=== PATIENT | female | born 1965 | race Caucasian/White ===

== ENCOUNTER 2023-01-08 09:35 | Inpatient (IN) ==
--- NOTE | 2023-01-08 09:57 | Emergency Department Note ---
History of Present Illness General Chief complaint: Shortness of Breath/Dyspnea Stated complaint: SOB Time Seen by Provider: 01/08/23 09:37 History of Present Illness 57-year-old female presents emergency department with a 2-week history of cough cold congestion, green sputum and shortness of breath. Patient does not wear oxygen at home. Patient called EMS today for increased shortness of breath and cough. Patient denies hemoptysis. Patient is a smoker. Patient denies any history of pneumonia. There are no other mitigating or alleviating factors Home Medications Medication Instructions Recorded Confirmed Type albuterol sulfate 90 mcg/actuation 2 inh inhalation Q6H PRN Shortness 01/08/23 01/08/23 History aerosol inhaler Of Breath Or Wheezing buprenorphine HCl 8 mg sublingual 8 mg sublingual BID 01/08/23 01/08/23 History tablet clonazepam 1 mg tablet 1 mg PO BID 01/08/23 01/08/23 History escitalopram oxalate 20 mg tablet 20 mg PO DAILY 01/08/23 01/08/23 History fluticasone furoate 100 1 inh inhalation DAILY 01/08/23 01/08/23 History mcg-vilanterol 25 mcg/dose inhalation powder (Breo Ellipta) gabapentin 600 mg tablet 600 mg PO QID 01/08/23 01/08/23 History mirtazapine 30 mg tablet 30 mg PO HS 01/08/23 01/08/23 History Allergies Allergy/AdvReac Type Severity Reaction Status Date / Time No Known Allergies Allergy Mild Unverified 12/15/14 06:06 Past Med/Surg History Medical History Anxiety Chronic pain Tobacco use Surgical History (Updated 01/08/23 @ 13:10 by Eliz Owens PA-C) History of ankle surgery History of splenectomy Family History (Updated 01/08/23 @ 13:10 by Eliz Owens PA-C) Mother Hypertension Father Leukemia Social History (Updated 01/08/23 @ 13:11 by Eliz Owens PA-C) Smoking Status: Current every day smoker Tobacco Type: Cigarettes Cigarettes Per Day: 1 pack per day x >30 years; Hx Alcohol Use: No Hx Substance Use: Yes Prescribed Medications Comment: buprenorphine Preferred Language: German Feels Safe at Home: Yes Immunizations: Past medical history of COPD, social history positive smoker Review of Systems A total of 10 systems reviewed and were otherwise negative Respiratory: + cough Cardiovascular: + dyspnea Physical Exam Vital Signs Vital Signs - 24 hr 01/08/23 09:48 01/08/23 09:35 01/08/23 09:35 Temperature 36.5 C Temperature Source Oral Pulse Rate 106 H 97 H Pulse Rate from SpO2 Sensor Pulse Rhythm Regular Respiratory Rate 23 Respiratory Effort / Characteristics Non-Labored Respiratory Depth Normal Respiratory Pattern Regular Blood Pressure 103/82 Blood Pressure Mean 89 Pulse Oximetry 83 L 83 L Oxygen Delivery Method Room Air Nasal Cannula Oxygen Flow Rate 0 Sepsis Recent Fever Within 48 Hours No Sepsis New/Unexplained Change in Mental Status N/A Sepsis Action Taken by Nursing No Action Required Oxygen Flow Rate - Titration 4 Pulse Oximetry Post Tiitration 96 01/08/23 09:45 01/08/23 09:47 01/08/23 10:00 Temperature Temperature Source Pulse Rate 98 H 103 H 96 H Pulse Rate from SpO2 Sensor 103 H 95 H Pulse Rhythm Regular Respiratory Rate 21 19 24 Respiratory Effort / Characteristics Respiratory Depth Respiratory Pattern Blood Pressure 103/82 101/69 Blood Pressure Mean 89 79 Pulse Oximetry 94 82 L 96 Oxygen Delivery Method Nasal Cannula Room Air Nasal Cannula Oxygen Flow Rate 4 4 Sepsis Recent Fever Within 48 Hours Sepsis New/Unexplained Change in Mental Status Sepsis Action Taken by Nursing Oxygen Flow Rate - Titration Pulse Oximetry Post Tiitration 01/08/23 10:30 01/08/23 11:00 01/08/23 11:30 Temperature Temperature Source Pulse Rate 92 H 93 H 94 H Pulse Rate from SpO2 Sensor 90 92 H 94 H Pulse Rhythm Respiratory Rate 21 21 22 Respiratory Effort / Characteristics Respiratory Depth Respiratory Pattern Blood Pressure 96/67 L 101/66 101/65 Blood Pressure Mean 76 77 77 Pulse Oximetry 93 96 95 Oxygen Delivery Method Oxygen Flow Rate Sepsis Recent Fever Within 48 Hours Sepsis New/Unexplained Change in Mental Status Sepsis Action Taken by Nursing Oxygen Flow Rate - Titration Pulse Oximetry Post Tiitration 01/08/23 12:00 01/08/23 13:00 Temperature Temperature Source Pulse Rate 95 H 97 H Pulse Rate from SpO2 Sensor 95 H 97 H Pulse Rhythm Respiratory Rate 24 22 Respiratory Effort / Characteristics Respiratory Depth Respiratory Pattern Blood Pressure 105/74 106/69 Blood Pressure Mean 84 81 Pulse Oximetry 95 92 Oxygen Delivery Method Oxygen Flow Rate Sepsis Recent Fever Within 48 Hours Sepsis New/Unexplained Change in Mental Status Sepsis Action Taken by Nursing Oxygen Flow Rate - Titration Pulse Oximetry Post Tiitration GENERAL: Patient is awake alert in no acute distress patient is resting comfortably and showing no signs of anxiety EYES: The conjunctivae are clear. The pupils are round and reactive. EARS, NOSE, MOUTH AND THROAT: The nose is without any evidence of any deformity. Mucous membranes are moist. Tongue is midline. NECK: The neck is nontender and supple. RESPIRATORY: Increased work of breathing, rhonchi bilaterally CARDIOVASCULAR: Regular rate and rhythm noted there no murmurs rubs or gallops normal S1 normal S2. GASTROINTESTINAL: The abdomen is soft. Abdomen is nontender. BACK: No midline tenderness or or step-off noted range of motion in flexion extension as well as rotation no signs of muscle spasm noted MUSCULOSKELETAL/EXTREMITIES: There is no evidence of gross deformity full range of motion is noted in the hips and shoulders. Calves are nontender bilaterally, no swelling SKIN: There is no obvious evidence of any rash. There are no petechiae, pallor or cyanosis noted. NEUROLOGIC: Patient is awake alert and oriented x3 strength is symmetric vásquez llar reflexes are 2+ bilaterally Course Reevaluation(s) Reevaluation #1: Patient is resting in no distress. Patient started on aspirin, heparin, Lasix. Patient has no current chest pain Time: 11:44 Consultations Consultation #1: [facility], CHF Time: 11:45 Administered Medications Heparin Sodium/Dextrose (Heparin Sodium/Dextrose) 25,000 units in 500 mls @ 23 mls/hr IV .[id number] [facility]; Protocol Stop: 02/07/23 11:14 Last Admin: 01/08/23 11:55 Dose: 1,150 units/hr, 23 mls/hr Documented By: RACHEL Co-signed By: Discontinued Medications Aspirin (Aspirin Chew 324 Mg) 324 mg PO NOW STA Stop: 01/08/23 10:52 Last Admin: 01/08/23 11:48 Dose: 324 mg Documented By: RACHEL Buprenorphine HCl (Buprenorphine Hcl 8 Mg Subl) 8 mg SL ONE ONE Stop: 01/08/23 12:58 Last Admin: 01/08/23 13:22 Dose: 8 mg Documented By: RACHEL Clonazepam (Clonazepam 1 Mg Tab) 1 mg PO NOW STA Stop: 01/08/23 12:50 Last Admin: 01/08/23 13:22 Dose: 1 mg Documented By: RACHEL Furosemide (Furosemide 40 Mg/4 Ml Vial) 40 mg IV ONE ONE Stop: 01/08/23 10:52 Last Admin: 01/08/23 11:50 Dose: 40 mg Documented By: RACHEL Heparin Sodium (Porcine) (Heparin Sod (Porcine) 1000 Unit/Ml) 1 units IV NOW ONE Stop: 01/08/23 11:10 Last Admin: 01/08/23 11:55 Dose: Not Given Documented By: RACHEL Heparin Sodium (Porcine) (Heparin Sod (Porcine) 1000 Unit/Ml) 5,000 units IV NOW ONE Stop: 01/08/23 11:46 Last Admin: 01/08/23 11:54 Dose: 5,000 units Documented By: RACHEL Co-signed By: ABENA Heparin Sodium/Dextrose (Heparin Iv Adult Wt-Based Standard With Bolus Protocol) 1 each IV NOW STA; Protocol Stop: 01/08/23 10:55 Last Admin: 01/08/23 11:55 Dose: Not Given Documented By: RACHEL Piperacillin Sod/Tazobactam Sod (Zosyn) 4.5 gm in 120 mls @ 240 mls/hr IV NOW ONE Stop: 01/08/23 13:24 Last Admin: 01/08/23 13:22 Dose: 240 mls/hr Documented By: RACHEL Methylprednisolone (Methylprednisolone 125 Mg/2 Ml Vial) 125 mg IV NOW STA Stop: 01/08/23 10:53 Last Admin: 01/08/23 11:50 Dose: 125 mg Documented By: RACHEL Critical Care Time Critical Care Time: Yes Total Critical Care Time: 40 I have personally spent greater than 40 minutes of critical care time in the direct management of this patient. This includes bedside care, interpretation of diagnostic studies, and testing, discussion with consultants, patient, and family members, and other required patient management activities. These minutes are in excess of all separately billable procedures. Medical Decision Making Medical Records Attestation: I reviewed the patient's medical records. Home Medications Current Medication List: was personally reviewed by me Laboratory Data Attestation: I reviewed the patient's lab results. Lab results interpreted by me CBC patient has leukocytosis, troponin is elevated, BNP is elevated consistent with ACS and CHF 01/08/23 09:57 Lab Results 01/08/23 01/08/23 01/08/23 Range/Units 09:57 09:57 09:57 WBC 20.25 H (4.8-10.8) K/ul RBC 4.49 (4.20-5.40) M/uL Hgb 14.6 (12.0-16.0) g/dl Hct 43.3 (37.0-47.0) % MCV 96.4 (80.0-100.0) fL MCH 32.5 (25.0-34.0) pg MCHC 33.7 (32.0-36.0) g/dL RDW Std Deviation 52.9 H (36.4-46.3) fL RDW Coeff of Jaime 15.0 H (11.5-14.5) % Plt Count 336 (130-400) K/uL MPV 9.3 L (9.4-12.4) fL Immature Gran % (Auto) 0.5 % Neut % (Auto) 68.9 % Lymph % (Auto) 24.1 % Sully % (Auto) 5.9 % Eos % (Auto) 0.1 % Baso % (Auto) 0.5 % Neut # (Auto) 13.94 H (1.40-6.50) K/uL Lymph # (Auto) 4.89 H (1.20-3.40) K/uL Sully # (Auto) 1.20 H (0.11-0.59) K/uL Eos # (Auto) 0.02 (0.00-0.50) K/uL Baso # (Auto) 0.10 (0.00-0.20) K/uL Immature Gran # (Auto) 0.10 (0.01-0.20) K/uL PT 12.0 (9.0-12.0) Seconds INR 1.1 (0.9-1.1) APTT (21.0-31.0) Seconds PTT Ratio D-Dimer (0-500) ug/L FEU Sodium 140 (136-145) mmol/L Potassium 3.6 (3.5-5.1) mmol/L Chloride 102 (98-107) mmol/L Carbon Dioxide 32 (21-32) mmol/L Anion Gap 6 (3-11) BUN 13 (6-23) mg/dl Creatinine 0.49 L (0.6-1.2) mg/dl Est Cr Clr Drug Dosing 126.2 ml/min Est GFR ( Amer) 127.1 ml/min Est GFR (Non-Af Amer) 109.7 ml/min BUN/Creatinine Ratio 26.5 H (10-20) Glucose 140 H (70-99(Fasting)) mg/dl Calcium 9.1 (8.6-10.3) mg/dl Magnesium 1.9 (1.7-2.4) mg/dl Total Bilirubin 0.4 (0.2-1.0) mg/dl AST 19 (13-39) U/L ALT 16 (7-52) U/L Alkaline Phosphatase 62 (34-104) U/L Troponin I High Sens 500.8 H* (0-14) pg/ml B-Natriuretic Peptide (0-100) pg/ml Total Protein 7.7 (6.0-8.3) gm/dl Albumin 3.8 (3.4-5.0) gm/dl Globulin 3.9 (2.5-4.0) gm/dl Albumin/Globulin Ratio 1.0 (0.9-2) SARS-CoV-2, RNA, NAAT (NEGATIVE) 01/08/23 01/08/23 01/08/23 Range/Units 09:57 09:57 09:57 WBC (4.8-10.8) K/ul RBC (4.20-5.40) M/uL Hgb (12.0-16.0) g/dl Hct (37.0-47.0) % MCV (80.0-100.0) fL MCH (25.0-34.0) pg MCHC (32.0-36.0) g/dL RDW Std Deviation (36.4-46.3) fL RDW Coeff of Jaime (11.5-14.5) % Plt Count (130-400) K/uL MPV (9.4-12.4) fL Immature Gran % (Auto) % Neut % (Auto) % Lymph % (Auto) % Sully % (Auto) % Eos % (Auto) % Baso % (Auto) % Neut # (Auto) (1.40-6.50) K/uL Lymph # (Auto) (1.20-3.40) K/uL Sully # (Auto) (0.11-0.59) K/uL Eos # (Auto) (0.00-0.50) K/uL Baso # (Auto) (0.00-0.20) K/uL Immature Gran # (Auto) (0.01-0.20) K/uL PT (9.0-12.0) Seconds INR (0.9-1.1) APTT 29.7 (21.0-31.0) Seconds PTT Ratio 1.1 D-Dimer 460 (0-500) ug/L FEU Sodium (136-145) mmol/L Potassium (3.5-5.1) mmol/L Chloride (98-107) mmol/L Carbon Dioxide (21-32) mmol/L Anion Gap (3-11) BUN (6-23) mg/dl Creatinine (0.6-1.2) mg/dl Est Cr Clr Drug Dosing ml/min Est GFR ( Amer) ml/min Est GFR (Non-Af Amer) ml/min BUN/Creatinine Ratio (10-20) Glucose (70-99(Fasting)) mg/dl Calcium (8.6-10.3) mg/dl Magnesium (1.7-2.4) mg/dl Total Bilirubin (0.2-1.0) mg/dl AST (13-39) U/L ALT (7-52) U/L Alkaline Phosphatase (34-104) U/L Troponin I High Sens (0-14) pg/ml B-Natriuretic Peptide 435 H (0-100) pg/ml Total Protein (6.0-8.3) gm/dl Albumin (3.4-5.0) gm/dl Globulin (2.5-4.0) gm/dl Albumin/Globulin Ratio (0.9-2) SARS-CoV-2, RNA, NAAT (NEGATIVE) 01/08/23 01/08/23 Range/Units 10:15 12:21 WBC (4.8-10.8) K/ul RBC (4.20-5.40) M/uL Hgb (12.0-16.0) g/dl Hct (37.0-47.0) % MCV (80.0-100.0) fL MCH (25.0-34.0) pg MCHC (32.0-36.0) g/dL RDW Std Deviation (36.4-46.3) fL RDW Coeff of Jaime (11.5-14.5) % Plt Count (130-400) K/uL MPV (9.4-12.4) fL Immature Gran % (Auto) % Neut % (Auto) % Lymph % (Auto) % Sully % (Auto) % Eos % (Auto) % Baso % (Auto) % Neut # (Auto) (1.40-6.50) K/uL Lymph # (Auto) (1.20-3.40) K/uL Sully # (Auto) (0.11-0.59) K/uL Eos # (Auto) (0.00-0.50) K/uL Baso # (Auto) (0.00-0.20) K/uL Immature Gran # (Auto) (0.01-0.20) K/uL PT (9.0-12.0) Seconds INR (0.9-1.1) APTT (21.0-31.0) Seconds PTT Ratio D-Dimer (0-500) ug/L FEU Sodium (136-145) mmol/L Potassium (3.5-5.1) mmol/L Chloride (98-107) mmol/L Carbon Dioxide (21-32) mmol/L Anion Gap (3-11) BUN (6-23) mg/dl Creatinine (0.6-1.2) mg/dl Est Cr Clr Drug Dosing ml/min Est GFR ( Amer) ml/min Est GFR (Non-Af Amer) ml/min BUN/Creatinine Ratio (10-20) Glucose (70-99(Fasting)) mg/dl Calcium (8.6-10.3) mg/dl Magnesium (1.7-2.4) mg/dl Total Bilirubin (0.2-1.0) mg/dl AST (13-39) U/L ALT (7-52) U/L Alkaline Phosphatase (34-104) U/L Troponin I High Sens 1613.1 H* D (0-14) pg/ml B-Natriuretic Peptide (0-100) pg/ml Total Protein (6.0-8.3) gm/dl Albumin (3.4-5.0) gm/dl Globulin (2.5-4.0) gm/dl Albumin/Globulin Ratio (0.9-2) SARS-CoV-2, RNA, NAAT NEGATIVE (NEGATIVE) Imaging Data Attestation: I personally reviewed and interpreted this imaging study as foll ows: My Impression: Chest x-ray interpreted by me negative for infiltrate Radiologist's Impression: Chest X-Ray 01/08/23 09:37 XR chest 1V portable CLINICAL HISTORY: Dyspnea TECHNIQUE: Single frontal radiograph of the chest was obtained. Comparison: Comparison is made to chest radiograph 12/15/2014 FINDINGS: No lines and tubes are seen. The cardiomediastinal silhouette is normal. Prominence and cephalization of the vasculature is seen. No evidence of pleural effusion or pneumothorax. IMPRESSION: Possible mild pulmonary vascular congestion. ACT 112: Negative or not required by law. Electronically signed by: Keven Peck M.D. 01/08/2023 10:31 AM ECG Data Attestation: I personally reviewed and interpreted this ECG as follows: Additional Comments: EKG interpreted by me sinus tachycardia rate of 101, incomplete right bundle branch block, no obvious ST segment elevation or depression normal axis Telemetry was ordered by me, interpreted as sinus tachycardia rate of 101 MDM Narrative Medical decision making differential diagnosis includes COPD exacerbation, COVID, pneumonia, bronchitis, upper respiratory tract infection, cardiac dysrhythmia EMS medical report was reviewed by me Family provided me bedside history Plan is to check labs, EKG, chest x-ray Patient's heart score is a 4 Patient has an elevated troponin, elevated BNP, will be treated for COPD, CHF, ACS Patient was started on aspirin, heparin, Lasix [facility] Impression & Plan ACS (acute coronary syndrome), CHF (congestive heart failure), Leukocytosis, COPD (chronic obstructive pulmonary disease) Discharge Plan Visit Data Chief Complaint: Shortness of Breath/Dyspnea Stated Complaint: SOB ED Provider: Fredrick Latif Discharge Problem: ACS (acute coronary syndrome), CHF (congestive heart failure), Leukocytosis, COPD (chronic obstructive pulmonary disease) Patient Disposition: Admitted As Inpatient Forms Stand Alone Forms: My [facility] pickrset Prescriptions Prescriptions: No Action gabapentin 600 mg tablet 600 mg PO QID clonazepam 1 mg tablet 1 mg PO BID mirtazapine 30 mg tablet 30 mg PO HS albuterol sulfate 90 mcg/actuation HFA aerosol inhaler 2 inh INHALATION Q6H PRN (Reason: Shortness Of Breath Or Wheezing) escitalopram oxalate 20 mg tablet 20 mg PO DAILY buprenorphine HCl 8 mg tablet, sublingual 8 mg SUBLINGUAL BID fluticasone furoate-vilanterol [Breo Ellipta] 100-25 mcg/dose blister with device 1 inh INHALATION DAILY Referrals Referrals: Police,[place] [Non-Staff] -
[2023-01-08 10:19] LABS: Basophils % (auto) 0.5 %; Eosinophils # (auto) 0.02 K/uL (0.00-0.50); Eosinophils % (auto) 0.1 %; Hematocrit (blood only) 43.3 % (37.0-47.0); Hemoglobin 14.6 g/dl (12.0-16.0); Immature Granulocytes % (auto) 0.5 %; Lymphocytes # (auto) 4.89 K/uL (1.20-3.40); Lymphocytes % (auto) 24.1 %; Mean Corpuscular Hemoglobin 32.5 pg (25.0-34.0); Mean Corpuscular Hgb Conc 33.7 g/dL (32.0-36.0); Mean Corpuscular Volume 96.4 fL (80.0-100.0); Mean Platelet Volume 9.3 fL (9.4-12.4); Monocytes % (auto) 5.9 %; Neutrophils # (auto) 13.94 K/uL (1.40-6.50); Neutrophils % (auto) 68.9 %; Platelet Count 336 K/uL (130-400); RDW Standard Deviation 52.9 fL (36.4-46.3); Red Blood Count 4.49 M/uL (4.20-5.40); White Blood Count 20.25 K/ul (4.8-10.8)
--- NOTE | 2023-01-08 10:33 | XRay Report ---
XR chest 1V portable CLINICAL HISTORY: Dyspnea TECHNIQUE: Single frontal radiograph of the chest was obtained. Comparison: Comparison is made to chest radiograph 12/15/2014 FINDINGS: No lines and tubes are seen. The cardiomediastinal silhouette is normal. Prominence and cephalization of the vasculature is seen. No evidence of pleural effusion or pneumothorax. IMPRESSION: Possible mild pulmonary vascular congestion. ACT 112: Negative or not required by law. Electronically signed by: Keven Peck M.D. 01/08/2023 10:31 AM
[2023-01-08 10:45] LABS: INR 1.1 (0.9-1.1)
[2023-01-08] MEDS ORDERED: FUROSEMIDE 40 MG/4 ML VIAL IV ONE (10:51)
[2023-01-08] MEDS ORDERED: ASPIRIN CHEW 324 MG PO STA (10:51)
[2023-01-08 10:52] LABS: Troponin I High Sensitivity 500.8 pg/ml (0-14)
[2023-01-08] MEDS ORDERED: methylPREDNISolone 125 MG/2 ML VIAL IV STA (10:52)
[2023-01-08 10:54] LABS: Albumin Level 3.8 gm/dl (3.4-5.0); Anion Gap 6 (3-11); Bilirubin,Total 0.4 mg/dl (0.2-1.0); Calcium 9.1 mg/dl (8.6-10.3); Carbon Dioxide 32 mmol/L (21-32); Chloride 102 mmol/L (98-107); Magnesium 1.9 mg/dl (1.7-2.4); Potassium 3.6 mmol/L (3.5-5.1); Sodium 140 mmol/L (136-145)
[2023-01-08] MEDS ORDERED: Heparin IV Adult Wt-Based Standard WITH Bolus Protocol IV STA (10:54)
[2023-01-08 11:00] LABS: Alanine Aminotransferase 16 U/L (7-52); Alkaline Phosphatase 62 U/L (34-104); Aspartate Aminotransferase 19 U/L (13-39); BUN Creatinine Ratio 26.5 (10-20); Blood Urea Nitrogen 13 mg/dl (6-23); Creatinine Clr Calc Pharmacy 126.2 ml/min; Est GFR (African American) 127.1 ml/min; Est GFR (Non-African American) 109.7 ml/min; Globulin 3.9 gm/dl (2.5-4.0); Glucose 140 mg/dl (70-99(Fasting)); Total Protein 7.7 gm/dl (6.0-8.3)
[2023-01-08] MEDS ORDERED: HEPARIN SOD (PORCINE) 1000 UNIT/ML IV ONE ×2 (11:09→11:45)
[2023-01-08 11:44] LABS: Partial Thromboplastin Ratio 1.1; Partial Thromboplastin Time 29.7 Seconds (21.0-31.0)
--- NOTE | 2023-01-08 11:46 | History & Physical Report ---
Date of Service January 08, 2023 Assessment & Plan (1) Acute respiratory failure with hypoxia: (2) History of asplenia: Plan: Patient is a 57-year-old female with PMH GERD, anxiety, tobacco use, chronic pain, history of splenectomy presented to ER with complaint of worsening exertional shortness of breath x 3 weeks. Green productive cough x1 week. Severely increased shortness of breath today. DDx bronchitis, pneumonia. Suspect underlying undiagnosed COPD and likely COPD exacerbation In ER patient afebrile, tachycardic, BP stable, 83% on room air up to 94% on 4 L nasal cannula Was given DuoNeb in route by EMS In ER given 125 mg Solu-Medrol IV WBC: 20 SARS Cov 2 RNA: Negative Procalcitonin pending Biofire pending D-dimer WNL Blood cultures pending CXR: Possible mild pulmonary vascular congestion. Per radiology read. Per my interpretation no acute infiltrate noted Supplemental oxygen, goal 89-92% oxygen saturations Xopenex/Atrovent scheduled nebs Solu-Medrol 40 mg every 8 hours Zosyn, doxycycline Sputum culture Obtain Legionella CT chest pending Echo pending Continue home Breo inhaler CBC, BMP in a.m. (3) Elevated troponin: Plan: NSTEMI vs ACS vs demand ischemia Initial high-sensitivity troponin: 500. Initial EKG sinus tachycardia, rate 101, no significant ST elevations per my interpretation. Prior EKG from 12/15/2014 reviewed: Sinus bradycardia, rate 58, T wave inversions noted septal and anterior leads per my interpretation. Obtain EKG now to reevaluate Repeat HS troponin pending In ER given 324mg aspirin, IV heparin bolus and drip started Echo pending Trend troponin Continue heparin IV Lipid panel in am Start daily aspirin Consider starting statin Cardiology consult. Discussed with Dr Catalan and will have echo completed now. Repeat EKG in am Possible heart failure likely secondary to above BNP 435 CXR Possible mild pulmonary vascular congestion per radiologist In ER given Lasix 40 mg IV Monitor I's and O's, daily weight Echo pending Lasix (4) Anxiety: Plan: Continue escitalopram, clonazepam (5) Chronic pain: Plan: Continue buprenorphine, gabapentin (6) Tobacco use: Plan: 1 pack/day x > 30 years Smoking cessation advised Denies nicotine patch at this time DVT Prophylaxis On IV heparin currently Full Code as per discussion with pt Follows with Jillian Persaud PA-C in [place] for routine care Pt was seen and care coordinated with Dr Beckwith. See addendum History of Present Illness Chief Complaint: SOB, cough Primary Care Provider: Jillian Persaud PA-C Patient is a 57-year-old female with PMH GERD, anxiety, tobacco use, chronic pain, history of splenectomy presented to ER with complaint of shortness of breath. History obtained from patient and patient's daughter. Patient reports exertional SOB for greater than 1 year. Followed with PCP who initially placed patient on albuterol inhaler as needed. Patient states was using frequently and recently was started on Breo inhaler daily. Has not had any formal PFTs or further work-up for per patient. Patient states the past 3 weeks she has had increased shortness of breath with exertion. She states she lives in a 1 story trailer and she has been short of breath with minimal ambulation throughout her house. States for the past week has had cough productive of green-colored sputum. Reports has been coughing a lot and abdomen and back are aching after coughing. States past couple days increased fatigue and dizziness with standing. Patient reports severely increased shortness of breath this morning. Patient states was also diaphoretic this morning. Has not been taking her temperature. She called EMS. As reported EMS noted patient to be hypoxic gave patient DuoNeb. Patient states feels less short of breath after DuoNeb and while on oxygen. Denies chest pain. Denies ill contacts, recent travel Denies N/V/D, LOPEZ, syncope, vision changes, neck pain, CP, chest tightness, orthopnea, palpitations, hemoptysis, sore throat, choking, otalgia, rhinorrhea, paresthesias, extremity weakness, extremity edema, rashes, urinary symptoms. Allergies Allergy/AdvReac Type Severity Reaction Status Date / Time No Known Allergies Allergy Mild Unverified 12/15/14 06:06 Home Medications Medication Instructions Recorded Confirmed Type albuterol sulfate 90 mcg/actuation 2 inh inhalation Q6H PRN Shortness 01/08/23 01/08/23 History aerosol inhaler Of Breath Or Wheezing buprenorphine HCl 8 mg sublingual 8 mg sublingual BID 01/08/23 01/08/23 History tablet clonazepam 1 mg tablet 1 mg PO BID 01/08/23 01/08/23 History escitalopram oxalate 20 mg tablet 20 mg PO DAILY 01/08/23 01/08/23 History fluticasone furoate 100 1 inh inhalation DAILY 01/08/23 01/08/23 History mcg-vilanterol 25 mcg/dose inhalation powder (Breo Ellipta) gabapentin 600 mg tablet 600 mg PO QID 01/08/23 01/08/23 History mirtazapine 30 mg tablet 30 mg PO HS 01/08/23 01/08/23 History Past Med/Surg History Medical History Anxiety Chronic pain Tobacco use Surgical History History of ankle surgery History of splenectomy Family History Mother Hypertension Father Leukemia Social History Smoking Status: Current every day smoker Tobacco Type: Cigarettes Cigarettes Per Day: 1 pack per day x >30 years; Hx Alcohol Use: No Hx Substance Use: Yes Prescribed Medications Comment: buprenorphine Preferred Language: Bur[place]ian Feels Safe at Home: Yes Review of Systems Review of Systems: All systems reviewed & are unremarkable except as noted in HPI & below Physical Exam Physical Exam: General: no acute distress on current 3 liters oxygen and at rest, WDWN female appears older than stated age Head: normocephalic, atraumatic Eyes: conjunctiva non-injected, anicteric ENT: normal inspection external ears, nose, mucous membranes moist Neck: supple, trachea midline Lungs: no respiratory distress at rest and on 3L oxygen. Sats 93-94%, +rhonchi throughout that decreases after coughing, + scattered wheezing throughout CV: regular rhythm, tachycardia,rate 100, no murmur noted, no pretibial edema Abd: normal BS, soft, non-tender Ext: no cyanosis, no erythema, no calf tenderness Neuro: A&O x 3, no focal deficits noted, mildly anxious affect Skin: warm, dry Results & Data Results & Data Vital Signs (Past 12 Hours) Vital Signs Temp Pulse Resp BP Pulse Ox O2 Del Method O2 Flow Rate 01/08/23 10:00 96 H 24 101/69 96 Nasal Cannula 4 01/08/23 09:47 103 H 19 103/82 82 L Room Air 01/08/23 09:45 98 H 21 94 Nasal Cannula 4 01/08/23 09:35 83 L Nasal Cannula 0 01/08/23 09:35 36.5 C 97 H 23 103/82 83 L Room Air 01/08/23 09:48 106 H Laboratory Results Short CBC 01/08/23 Range/Units 09:57 WBC 20.25 H (4.8-10.8) K/ul Hgb 14.6 (12.0-16.0) g/dl Hct 43.3 (37.0-47.0) % Plt Count 336 (130-400) K/uL BMP 01/08/23 09:57 Sodium 140 Potassium 3.6 Chloride 102 Carbon Dioxide 32 BUN 13 Creatinine 0.49 L Glucose 140 H Calcium 9.1 Liver Function 01/08/23 Range/Units 09:57 Total Bilirubin 0.4 (0.2-1.0) mg/dl AST 19 (13-39) U/L ALT 16 (7-52) U/L Alkaline Phosphatase 62 (34-104) U/L Albumin 3.8 (3.4-5.0) gm/dl Diagnostic Findings Chest X-Ray 01/08/23 09:37 XR chest 1V portable CLINICAL HISTORY: Dyspnea TECHNIQUE: Single frontal radiograph of the chest was obtained. Comparison: Comparison is made to chest radiograph 12/15/2014 FINDINGS: No lines and tubes are seen. The cardiomediastinal silhouette is normal. Prominence and cephalization of the vasculature is seen. No evidence of pleural effusion or pneumothorax. IMPRESSION: Possible mild pulmonary vascular congestion. ACT 112: Negative or not required by law. Electronically signed by: Keven Peck M.D. 01/08/2023 10:31 AM Supervising Physician Co-Signing Physician Notes Pt seen and examined by myself, Cathy Beckwith MD on the day of service. Care was coordinated with Eliz Owens PA-C. 57yoF with PMhx significant for chronic pain, anxiety and chronic tobacco use presenting with acute hypoxic respiratory failure. No oxygen requirement at home, requiring 4L on admission. Pt noted recent Hx of chronic cough and colored sputum for the past 2 weeks with increasing SOB. Chest XRAY noted possible pulmonary vascular congestion, WBC elevated. hs-Troponins elevated at 500.8, BNP elevated at 435. On exam, pt with oxymask in place, no acute distress. Breath sounds rhonchus on exam. No noted swelling in lower extremities. Acute hypoxic resp failure- biofire, legionella, procal, CT chest, pulm toilet, continue Lasix at 20mg daily (started in the ED), continue IV solumedrol, empiric Cefepime and doxycycline Elevated trops- ekg with sinus tach and RBBB, echo pending, trend hs-trop, cardiology consult-appreciate recs, continue IV heparin Continue other chronic home meds. Otherwise as above. Cathy Beckwith MD [facility]
[2023-01-08] MEDS: HEPARIN SODIUM/DEXTROSE 25,000 UNITS/500 ML BAG IV SCH (11:55)
[2023-01-08] MEDS ORDERED: clonazePAM 1 MG TAB PO STA (12:49)
[2023-01-08] MEDS ORDERED: DOXYCYCLINE HYCLATE 100 MG in DEXTROSE 5% 100 ML IV STA (12:53)
[2023-01-08] MEDS ORDERED: PIPERACILLIN/TAZOBACTAM 4.5 GM in DEXTROSE 5% 100 ML IV ONE (12:53)
[2023-01-08] MEDS ORDERED: PIPERACILLIN/TAZOBACTAM 4.5 GM/120 ML BAG IV ONE (12:55)
[2023-01-08] MEDS ORDERED: buprenorphine HCL 8 MG SUBL SL ONE (12:57)
[2023-01-08 13:07] LABS: D Dimer 460 ug/L FEU (0-500)
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
[2023-01-08 14:00] LABS: Adenovirus PCR Not Detected (NotDetected); Bordetella parapertussis PCR Not Detected (NotDetected); Bordetella pertussis PCR Not Detected (NotDetected); Chlamydia pneumoniae PCR Not Detected (NotDetected); Coronavirus 229E PCR Not Detected (NotDetected); Coronavirus CoV-2 (COVID19)PCR Not Detected (NotDetected); Coronavirus HKU1 PCR Not Detected (NotDetected); Coronavirus NL63 PCR Not Detected (NotDetected); Coronavirus OC43PCR Not Detected (NotDetected); Human Metapneumovirus PCR Not Detected (NotDetected); Influenza A PCR Not Detected (NotDetected); Influenza B PCR Not Detected (NotDetected); Mycoplasma pneumoniae PCR Not Detected (NotDetected); Parainfluenza Virus 1 PCR Not Detected (NotDetected); Parainfluenza Virus 2 PCR Not Detected (NotDetected); Parainfluenza Virus 3 PCR Not Detected (NotDetected); Parainfluenza Virus 4 PCR Not Detected (NotDetected); Respiratory Syncytial VirusPCR Not Detected (NotDetected); Rhinovirus/Enterovirus PCR Not Detected (NotDetected)
[2023-01-08] MEDS ORDERED: POTASSIUM CHLORIDE 10 MEQ TABCR PO STA (14:42)
[2023-01-08] MEDS ORDERED: MAGNESIUM HYDROXIDE SUSP 30 ML UDC PO PRN (15:29)
[2023-01-08] MEDS ORDERED: ACETAMINOPHEN 325 MG TAB PO PRN (15:29)
[2023-01-08] MEDS ORDERED: POLYETHYLENE (MIRALAX) 17 GM PACK PO PRN (15:29)
[2023-01-08] MEDS ORDERED: XOPENEX/ATROVENT 1.25mg/0.5MG NEB COMBO NEB SCH (15:29)
--- NOTE | 2023-01-08 15:57 | CT Scan Report ---
CT chest diagnostic wo con CLINICAL HISTORY: hypoxia, r/o pna TECHNIQUE: Multidetector row helical CT of the chest was performed. Coronal and sagittal reformations were obtained. Automated dose lowering techniques and/or adjustment according to patient size were u tilized for this exam. CT DOSE: 303.32 mGy.cm Comparison: Comparison is made to chest radiograph 01/08/2023 FINDINGS: Lungs and pleura: Diffuse centrilobular emphysema is seen most prominent in the upper lobes. Multifoc al opacities are seen favoring the lower lungs. Heart and pericardium: Heart size is normal. No pericardial effusion. Vessels: Unremarkable. Mediastinum and george: Numerous enlarged lymph nodes are seen in the mediastinum measuring up to 11 mm . Chest wall and lower neck: Unremarkable. Abdomen: Unremarkable. Bones: Degenerative changes in the thoracic spine. IMPRESSION: 1. Multifocal pneumonia with reactive mediastinal lymphadenopathy. 2. Emphysema. ACT 112: Negative or not required by law. Electronically signed by: Keven Peck M.D. 01/08/2023 3:55 PM
[2023-01-08] MEDS: LEVALBUTEROL 1.25 MG/3 ML NEB NEB SCH ×2 (16:23→19:26)
[2023-01-08] MEDS: IPRATROPIUM BROMIDE NEB SOLN 0.02% 2.5 ML VIAL INH SCH ×2 (16:23→19:26)
[2023-01-08] MEDS ORDERED: POTASSIUM CHLORIDE 10 MEQ TABCR PO ONE (17:01)
[2023-01-08] MEDS: GABAPENTIN 600 MG TAB PO SCH ×2 (17:56→22:22)
[2023-01-08] MEDS: CEFEPIME 2,000 MG in SYRINGE 0 ML IV SCH (17:57)
[2023-01-08] MEDS: ESCITALOPRAM OXALATE 20 MG TAB PO SCH (17:57)
[2023-01-08 19:02] LABS: Partial Thromboplastin Ratio > 4.9
[2023-01-08 19:10] LABS: Partial Thromboplastin Time > 139.0 Seconds (21.0-31.0)
[2023-01-08 20:08] LABS: Appearance Urine Clear (Clear); Bilirubin Urine Negative (Negative); Blood Urine Negative (Negative); Color Urine Yellow; Glucose Urine UA Negative (Negative); Ketones Urine Trace (Negative); Leukocyte Esterase Urine Negative (Negative); Nitrite Urine Negative (Negative); Protein Urine Negative (Negative); Urobilinogen Urine Negative (Negative); pH Urine 5.5 (4.5-7.5)
[2023-01-08 20:47] LABS: Partial Thromboplastin Ratio 2.5
[2023-01-08 21:09] LABS: Partial Thromboplastin Time 69.1 Seconds (21.0-31.0)
[2023-01-08] MEDS: clonazePAM 1 MG TAB PO SCH (22:22)
[2023-01-08] MEDS: buprenorphine HCL 8 MG SUBL SL SCH (22:22)
[2023-01-08] MEDS: MIRTAZAPINE TAB 15 MG TAB PO SCH (22:22)
[2023-01-08] MEDS: DOXYCYCLINE HYCLATE 100 MG CAP PO SCH (22:22)
[2023-01-08] MEDS ORDERED: ALBUT/IPRATROP 3MG/0.5MG NEB 3 ML VIAL NEB STA (22:38)
[2023-01-08] MEDS ORDERED: ALBUT/IPRATROP 3MG/0.5MG NEB 3 ML VIAL ONE (22:45)
[2023-01-08] MEDS ORDERED: methylPREDNISolone 40 MG in SYRINGE 0 ML IV STA (22:58)
[2023-01-08] MEDS ORDERED: ALBUMIN 25% 25 GM/100 ML VIAL IV ONE (23:00)
[2023-01-08 23:01] LABS: Partial Thromboplastin Ratio 1.1; Partial Thromboplastin Time 30.4 Seconds (21.0-31.0)
[2023-01-08 23:06] LABS: Base Excess ABG 9.6 mEq/L (-9-1.8); HCO3 ABG 36 mmol/L (19-24); Oxygen Saturation ABG 99.9 % (90-95); PCO2 ABG 54 mmHg (35-46); PO2 ABG 123 mmHg (80-95); pH ABG 7.43 (7.35-7.45)
[2023-01-08 23:08] LABS: Allen Test Pos (Pos)
[2023-01-08] MEDS: MAGNESIUM SULFATE / D5W 1 GM/100 ML BAG IV SCH (23:10)
[2023-01-09] MEDS: LEVALBUTEROL 1.25 MG/3 ML NEB NEB SCH ×4 (00:51→19:20)
[2023-01-09] MEDS: IPRATROPIUM BROMIDE NEB SOLN 0.02% 2.5 ML VIAL INH SCH ×4 (00:52→19:19)
[2023-01-09] MEDS ORDERED: ALBUMIN 25% 25 GM/100 ML VIAL IV ONE (01:15)
[2023-01-09] MEDS: MAGNESIUM SULFATE / D5W 1 GM/100 ML BAG IV SCH (01:21)
[2023-01-09] MEDS: CEFEPIME 2,000 MG in SYRINGE 0 ML IV SCH ×3 (04:32→20:09)
[2023-01-09 05:30] LABS: Basophils # (auto) 0.02 K/uL (0.00-0.20); Basophils % (auto) 0.1 %; Hematocrit (blood only) 36.2 % (37.0-47.0); Hemoglobin 11.8 g/dl (12.0-16.0); Immature Granulocytes # (auto) 0.06 K/uL (0.01-0.20); Immature Granulocytes % (auto) 0.3 %; Lymphocytes # (auto) 2.69 K/uL (1.20-3.40); Lymphocytes % (auto) 14.8 %; Mean Corpuscular Hemoglobin 31.7 pg (25.0-34.0); Mean Corpuscular Hgb Conc 32.6 g/dL (32.0-36.0); Mean Corpuscular Volume 97.3 fL (80.0-100.0); Mean Platelet Volume 9.4 fL (9.4-12.4); Monocytes # (auto) 0.53 K/uL (0.11-0.59); Monocytes % (auto) 2.9 %; Neutrophils # (auto) 14.89 K/uL (1.40-6.50); Neutrophils % (auto) 81.9 %; Platelet Count 288 K/uL (130-400); RDW Coefficient of Variation 14.7 % (11.5-14.5); Red Blood Count 3.72 M/uL (4.20-5.40); White Blood Count 18.19 K/ul (4.8-10.8)
[2023-01-09 05:35] LABS: BUN Creatinine Ratio 31.1 (10-20); Calcium 9.3 mg/dl (8.6-10.3); Chol HDL Ratio 3.9 (0-5); Creatinine Clr Calc Pharmacy 101.3 ml/min; Est GFR (African American) 118.3 ml/min; Est GFR (Non-African American) 102.1 ml/min; Potassium 3.8 mmol/L (3.5-5.1)
[2023-01-09 05:59] LABS: Partial Thromboplastin Ratio 2.4
[2023-01-09 06:51] LABS: Partial Thromboplastin Time 68.7 Seconds (21.0-31.0)
[2023-01-09 07:20] LABS: Estimated Average Glucose 120 mg/dl; Hemoglobin A1C 5.8 % (4.5-5.6)
[2023-01-09] MEDS ORDERED: methylPREDNISolone 40 MG in SYRINGE 0 ML IV SCH (09:00)
[2023-01-09] MEDS ORDERED: ASPIRIN 81 MG ECTAB PO SCH (09:00)
--- NOTE | 2023-01-09 09:42 | Cardiology Progress Note ---
Date of Service January 09, 2023 Assessment & Plan (1) Acute respiratory failure with hypoxia: (2) Abnormal EKG: (3) Elevated troponin: (4) Tobacco use: (5) Chronic pain: (6) Anxiety: Plan 57 year old female presenting with acute hypoxic respiratory failure secondary to multifocal pneumonia in the setting of underlying emphysema from chronic tobacco abuse. Elevated troponin noted along with an abnormal EKG, resting echocardiography revealing severe LV systolic dysfunction, EF 25 to 30% with severe diffuse LV hypokinesis affecting the mid and apical segments with relative sparing of the basal segments. Overall picture is that of the stress- induced cardiomyopathy though ischemia due to obstructive coronary artery disease is certainly a possibility RECOMMENDATIONS: 1. Repeat EKG 2. Repeat limited TTE this AM to reassess LVEF and wall motion 3. Continue aspirin, IV heparin, and statin. 4. Attempt to add low dose beta-alex therapy (metoprolol succinate 12.5 mg/day) as hypotension and respiratory status permit 5. Pending the above, it may be best to advance her diet and await for her acute pulmonary issues to improve prior to diagnostic cardiac catheterization 6. Find a way to become and remain an ex-smoker 7. Further recommendations pending the above, evaluation by Dr. Catalan, patient's ongoing hospitalization. Admission and Anticipated Discharge Date Admission Date: January 08, 2023 Supervising Physician Co-Signing Physician Notes Supervising Physician Attestation: I have personally performed a history and physical examination on the patient. I agree with the physician paperhanger assistant's findings and plan as documented with the following additions. Subjective: Patient seen and examined. She remains in room A4B at as a telemetry overflow patient in the emergency department. Telemetry reveals sinus rhythm in the 60s. At the time my assessment oxygen saturation normal, 95% on room air. Patient notes feeling markedly improved compared to yesterday. Family at the bedside including her son and daughter. Exam: Cardiovascular: Regular rhythm, no murmurs rubs or gallops, no edema Pulmonary: Coarse breath sounds, diffuse wheezing improved Data: Repeat EKG performed today 01/09/2023 and interpreted independently: Sinus rhythm at 61 bpm with incomplete right bundle branch block, T wave flattening noted in the anterior precordial leads and T wave inversions noted in lateral precordial leads V4 to V6. Compared to the tracing from yesterday, the ventricular rate has decreased by [address] segment elevation is no longer present in the anterior leads. Anterolateral T wave changes now present. A limited echocardiogram was performed at the bedside for reassessment and interpret independently: Ongoing severe diffuse hypokinesis of the mid and apical left ventricular segments noted with relative sparing of the basal segments, LVEF in the range of 25-30%. Compared 2D echocardiogram performed yesterday 01/08/2023 however there is a subtle improvement in the LV systolic function No coronary artery calcification observed on noncontrast CT of the chest. Assessment and Plan: Multifocal pneumonia with respiratory insufficiency Left ventricular systolic function, presentation suggest possible stress-induced cardiomyopathy with left ventricular apical ballooning syndrome, underlying ischemia not excluded -At present I recommend ongoing supportive care. Patient is not volume overloaded on exam. Continue aspirin, unfractioned heparin and atorvastatin along with inhaled bronchodilators, antibiotic therapy, Solu-Medrol. -No indication for emergent cardiac catheterization at present. -Patient tells me that historically her systolic blood pressure is in the 90s to 100s at baseline. With heart rate of 60 and systolic blood pressure 90 mm Hg this am , additional therapies including beta-alex, ACEi, ARB , and neprilysin inhibitor agents contraindicated at present. Case discussed with Dr. Padron for the purpose of coordination of care. Advance diet. Discussed updates with family at the bedside. Goran Catalan, Subjective Patient seen and examined. Chart, medications, and telemetry reviewed. Family/children at bedside. Patient feels and looks significantly better this morning. Breathing, cough, ch est congestion, SPO2, and heart rates have all improved. No chest pain. No palpitations. No orthopnea or PND. Echocardiogram performed on January 08, 2023 revealed severe diffuse hypokinesis of the left ventricle affecting the mid and apical segments with relative sparing of the basal segments, LVEF in the range of 25 -30% (severely diminished) Noncontrast CT chest: Multifocal pneumonia with reactive mediastinal lymphadenopathy as per radiology report, underlying emphysema. No coronary artery calcification noted on limited visualization. High-sensitivity troponin 500.8 -> 1352.1 -> 888.0 pg/mL. LDL cholesterol 70 mg/deciliter EKG requested this AM. Review of Systems Review of Systems: Complete Review of Systems is as stated above, negative, or noncontributory. Physical Exam Physical Exam: General: A&Ox3. NAD. HENT: Normocephalic. Atraumatic. Eyes: PER. Conjunctiva pink, sclera injected. Neck: No carotid bruits. No JVD. Heart: RRR, 60 bpm. No murmur. Lungs: Diminished. Decreased. Diffuse expiratory wheezing. Abdomen: +BS. Soft. Nontender. No masses or organomegaly. Extremities: No clubbing, cyanosis, or edema. Limited neurological examination is without focal deficits. Pulses: radial=2/4, posterior tibial=1/4. Results & Data Vital Signs (Past 12 Hours) Vital Signs Pulse Pulse Resp BP Pulse Ox O2 Del Method O2 Flow Rate 01/09/23 06:58 66 01/09/23 06:44 57 L 18 84 L Room Air 01/09/23 05:15 59 L 20 90/63 L 95 Nasal Cannula 01/09/23 05:00 63 20 87/55 L 94 Nasal Cannula 01/09/23 04:45 58 L 14 84/60 L 95 Nasal Cannula 01/09/23 04:30 60 13 87/56 L 92 Nasal Cannula 01/09/23 04:15 61 12 86/57 L 93 Nasal Cannula 01/09/23 04:00 60 12 81/57 L 95 Nasal Cannula 01/09/23 03:45 59 L 12 86/60 L 95 Nasal Cannula 01/09/23 03:32 67 19 78/50 L 95 Nasal Cannula 01/09/23 03:30 67 18 95 01/09/23 03:15 61 17 85/50 L 98 Nasal Cannula 01/09/23 03:00 62 12 81/59 L 97 01/09/23 02:45 71 13 92/64 L 93 Nasal Cannula 01/09/23 02:30 67 12 83/49 L 94 01/09/23 02:15 68 16 79/52 L 93 Nasal Cannula 01/09/23 02:06 67 12 93 01/09/23 01:45 70 14 87/49 L 92 Nasal Cannula 01/09/23 01:30 69 13 81/49 L 93 Nasal Cannula 01/09/23 01:15 72 12 78/50 L 93 Nasal Cannula 01/09/23 01:00 70 13 85/56 L 99 Nasal Cannula 01/09/23 00:45 68 14 77/54 L 94 Nasal Cannula 5 01/09/23 00:30 70 12 80/53 L 96 Nasal Cannula 5 01/09/23 00:15 71 13 79/52 L 98 Nasal Cannula 5 01/09/23 00:54 70 49 H 95 Nasal Cannula 4 01/08/23 22:56 73 01/08/23 22:42 67 16 108/65 96 Nasal Cannula 5 01/08/23 22:32 73 20 79/52 L 97 Nasal Cannula 5 01/08/23 22:30 72 16 51/30 L 96 01/08/23 22:00 73 28 H 88/62 L 96 Nasal Cannula 5 01/08/23 22:00 88/62 L Laboratory Results Cardiac Enzymes 01/08/23 01/08/23 01/08/23 Range/Units 09:57 09:57 12:21 AST 19 (13-39) U/L Troponin I High Sens 500.8 H* 1613.1 H* D (0-14) pg/ml B-Natriuretic Peptide 435 H (0-100) pg/ml 01/08/23 01/09/23 Range/Units 17:56 00:20 AST (13-39) U/L Troponin I High Sens 1352.1 H* 888.0 H* D (0-14) pg/ml B-Natriuretic Peptide (0-100) pg/ml Coagulation 01/08/23 01/08/23 01/08/23 Range/Units 09:57 09:57 09:57 PT 12.0 (9.0-12.0) Seconds APTT 29.7 (21.0-31.0) Seconds B-Natriuretic Peptide 435 H (0-100) pg/ml 01/08/23 01/08/23 01/08/23 Range/Units 17:56 19:40 22:20 PT (9.0-12.0) Seconds APTT > 139.0 H* 69.1 H* 30.4 (21.0-31.0) Seconds B-Natriuretic Peptide (0-100) pg/ml 01/09/23 01/09/23 Range/Units 03:32 05:04 PT (9.0-12.0) Seconds APTT Cancelled 68.7 H* (21.0-31.0) Seconds B-Natriuretic Peptide (0-100) pg/ml Lipids 01/09/23 Range/Units 05:04 Triglycerides 54 (0-150) mg/dl Cholesterol 109 (0-200) mg/dl HDL Cholesterol 28 mg/dl Cholesterol/HDL Ratio 3.9 (0-5) CBC 01/08/23 01/09/23 Range/Units 09:57 05:04 WBC 20.25 H 18.19 H (4.8-10.8) K/ul RBC 4.49 3.72 L (4.20-5.40) M/uL Hgb 14.6 11.8 L (12.0-16.0) g/dl Hct 43.3 36.2 L (37.0-47.0) % Plt Count 336 288 (130-400) K/uL Neut # (Auto) 13.94 H 14.89 H (1.40-6.50) K/uL Lymph # (Auto) 4.89 H 2.69 (1.20-3.40) K/uL [place] # (Auto) 1.20 H 0.53 (0.11-0.59) K/uL Eos # (Auto) 0.02 0.00 (0.00-0.50) K/uL Baso # (Auto) 0.10 0.02 (0.00-0.20) K/uL Comprehensive Metabolic Panel 01/08/23 01/09/23 Range/Units 09:57 05:04 Sodium 140 136 (136-145) mmol/L Potassium 3.6 3.8 (3.5-5.1) mmol/L Chloride 102 100 (98-107) mmol/L Carbon Dioxide 32 32 (21-32) mmol/L BUN 13 19 (6-23) mg/dl Creatinine 0.49 L 0.61 (0.6-1.2) mg/dl Glucose 140 H 199 H (70-99(Fasting)) mg/dl Calcium 9.1 9.3 (8.6-10.3) mg/dl AST 19 (13-39) U/L ALT 16 (7-52) U/L Alkaline Phosphatase 62 (34-104) U/L Total Protein 7.7 (6.0-8.3) gm/dl Albumin 3.8 (3.4-5.0) gm/dl Intake and Output 01/08/23 01/09/23 01/09/23 22:59 06:59 14:59 Intake Total 405.95 / 1090.783 564.833 / 1090.783 Output Total 400 / 400 Balance 5.95 / 690.783 564.833 / 690.783 Intake: IV 285.95 / 970.783 564.833 / 970.783 Albumin 25% 25 gm In 100 ml @ 200 / 200 50 mls/hr IV ONE ONE Rx#: [id number] Doxycycline Hyclate 100 mg In 110 / 110 Dextrose 5% 100 ml @ 50 mls/hr IV NOW STA Rx#:[id number] Heparin Sodium/Dextrose 25,000 175.95 / 340.783 164.833 / 340.783 units In 500 ml @ 0 UNITS/HR IV .Q0M [facility] Rx#:[id number] Magnesium Sulfate / D5w 1 gm In 200 / 200 100 ml @ 50 mls/hr IV Q2H [facility] Rx#:[id number] Oral 120 / 120 Output: Urine 400 / 400
[2023-01-09] MEDS: FLUTICASONE/VILANTEROL 100/25MCG 14 PUFFS/INHALER INH SCH (09:47)
[2023-01-09] MEDS: ASPIRIN 81 MG ECTAB PO SCH (09:50)
[2023-01-09] MEDS: DOXYCYCLINE HYCLATE 100 MG CAP PO SCH ×2 (09:50→20:13)
[2023-01-09] MEDS: ESCITALOPRAM OXALATE 20 MG TAB PO SCH (09:50)
[2023-01-09] MEDS: GABAPENTIN 600 MG TAB PO SCH ×4 (09:50→20:13)
[2023-01-09] MEDS: ATORVASTATIN 40 MG TAB PO SCH (09:50)
[2023-01-09] MEDS ORDERED: POTASSIUM CHLORIDE 10 MEQ TABCR PO ONE (09:57)
[2023-01-09] MEDS ORDERED: SODIUM CHLORIDE 0.9% 1,000 ML IV SCH (10:00)
[2023-01-09] MEDS: clonazePAM 1 MG TAB PO SCH ×2 (10:17→20:18)
[2023-01-09] MEDS: buprenorphine HCL 8 MG SUBL SL SCH ×2 (10:17→20:18)
[2023-01-09 11:48] LABS: Partial Thromboplastin Ratio 2.5
[2023-01-09 12:42] LABS: Partial Thromboplastin Time 70.6 Seconds (21.0-31.0)
[2023-01-09] MEDS: HEPARIN SODIUM/DEXTROSE 25,000 UNITS/500 ML BAG IV SCH (13:28)
--- NOTE | 2023-01-09 14:28 | Hospitalist Progress Note ---
Date of Service January 09, 2023 Assessment & Plan (1) Multifocal pneumonia: Plan 57-year-old female with PMH of GERD, anxiety, tobacco use (smoking since last 30 years), chronic pain, history of splenectomy presented to ER 01/08 with complaint of worsening exertional shortness of breath x 3 weeks. Green productive cough x1 week. Severely increased shortness of breath on the day of arrival. She is being managed for the folllowing: Multifocal pneumonia Sepsis POA: Likely secondary to above Acute respiratory failure with hypoxia: Likely secondary to above History of asplenia: In ER patient afebrile, tachycardic, BP stable, 83% on room air up to 94% on 4 L nasal cannula. WBC 20.25K. D-dimer nl. Lactate WNL. Increased work of breathing noted. DDx bronchitis, pneumonia. Suspect underlying undiagnosed COPD and likely COPD exacerbation Resp Biofire and covid neg. Longstanding smoking hx, pt counselled, didn't like counselling. CT chest w/ multifocal Pna and emphysema. C/w NC O2, wean down as tolerated Continue with nebs and Solu-Medrol RTC Continue with cefepime and doxycycline 01/08 Follow admitting blood and sputum culture. Patient febrile, trend WBC. Will need CXR and PFT in 6 weeks time upon discharge, possible establish with pulmonology. Elevated troponin ACS versus demand ischemia Possible stress-induced cardiomyopathy Patient presents with acute illness [see above], troponin elevated at 500, peaked at 1613, down trended to 888. LDL 70. Patient with no chest pain or tightness or pressure. Serial EKG reviewed, 01/08 echo with EF of 25 to 30%, severe diffuse left ventricular hypokinesis affecting the mid and apical segments with relative sparing of the basal segments. Grade 2 diastolic function noted. Repeat echo on 01/09 with EF of 25 to 30%, subtle improvement in the overall left ventricular systolic function noted. Patient clinically not volume overloaded, will continue to monitor. Not in heart failure. Discussed with cardiology, no indication for emergent cardiac cath, will manage pneumonia currently. We will continue with heparin drip. Other chronic medical conditions: Anxiety - Continue escitalopram, clonazepam Chronic pain - Continue buprenorphine, gabapentin Tobacco use - 1 pack/day x > 30 years, Smoking cessation advised. Denies nicotine patch at this time. DVT Prophylaxis: On IV heparin currently Full Code Follows with Jillian Persaud PA-C in [place] for routine care Admission and Anticipated Discharge Date Admission Date: January 08, 2023 Subjective Patient seen and examined at bedside as a follow-up of acute respiratory failure with hypoxia, elevated troponin [likely demand ischemia versus ACS], multifocal pneumonia. Patient was lying in bed, on 4 L oxygen via nasal cannula, was upset as she was n.p.o., denies any chest pain or tightness, reports feeling better overall, has cough with yellowish-greenish sputum, denies fever today. Reports she is hungry and would like to eat. Discussed with cardiology, no plan for cardiac cath today, diet resumed. Patient's daughter at bedside was updated in detail about the plan of care. She voiced understanding and was agreeable to the plan of care. Physical Exam Physical Exam: GENERAL: Alert and oriented x3. NAD, on 4L NC O2. Appears ill/sick/frail. HEENT: No pallor, no icterus. Pupils equal, round and reactive to light. Oral mucosa moist. NECK: No JVD, no neck masses. HEART: S1 and S2 heard. Regular rate and rhythm. No murmur, no gallop. RESPIRATORY SYSTEM: Normal AP diameter. No accessory muscle use. b/l rhonci, b/l crackles. ABDOMEN: Soft, bowel sounds present, nontender, no distention. CENTRAL NERVOUS SYSTEM: No facial droop. Speech is clear. Obeys simple commands. Moves extremities. EXTREMITIES: No edema, no erythema seen. Results & Data Results & Data Vital Signs (Past 12 Hours) Vital Signs Pulse Pulse Resp BP Pulse Ox O2 Del Method O2 Flow Rate 01/09/23 10:30 77 15 107/56 L 95 01/09/23 10:00 69 15 89/65 L 96 01/09/23 09:30 70 15 95/64 L 95 01/09/23 08:30 65 15 97/70 L 96 01/09/23 08:00 61 16 85/54 L 95 01/09/23 07:30 64 14 90/55 L 97 01/09/23 07:00 62 16 88/58 L 97 01/09/23 06:58 66 01/09/23 06:44 57 L 18 84 L Room Air 01/09/23 05:15 59 L 20 90/63 L 95 Nasal Cannula 4 01/09/23 05:00 63 20 87/55 L 94 Nasal Cannula 4 01/09/23 04:45 58 L 14 84/60 L 95 Nasal Cannula 4 01/09/23 04:30 60 13 87/56 L 92 Nasal Cannula 4 01/09/23 04:15 61 12 86/57 L 93 Nasal Cannula 4 01/09/23 04:00 60 12 81/57 L 95 Nasal Cannula 4 01/09/23 03:45 59 L 12 86/60 L 95 Nasal Cannula 4 01/09/23 03:32 67 19 78/50 L 95 Nasal Cannula 4 01/09/23 03:30 67 18 95 01/09/23 03:15 61 17 85/50 L 98 Nasal Cannula 4 01/09/23 03:00 62 12 81/59 L 97 01/09/23 02:45 71 13 92/64 L 93 Nasal Cannula 4 01/09/23 02:30 67 12 83/49 L 94 01/09/23 02:15 68 16 79/52 L 93 Nasal Cannula 4 01/09/23 02:06 67 12 93 4
[2023-01-09] MEDS: NICOTINE 21 MG/24 HR TDSY TD SCH (17:08)
--- NOTE | 2023-01-09 18:01 | Electrocardiogram Report ---
Test Reason : Blood Pressure : / mmHG Vent. Rate : 101 BPM Atrial Rate : 101 BPM P-R Int : 152 ms QRS Dur : 098 ms QT Int : 360 ms P-R-T Axes : 070 089 065 degrees QTc Int : 466 ms Sinus tachycardia Incomplete right bundle branch block Borderline ECG When compared with ECG of 15-DEC-2014 10:13, Vent. rate has increased BY 43 BPM Incomplete right bundle branch block is now Present Confirmed by Rip Vargas ([id number]) on 01/09/2023 6:00:37 PM Referred By: REFERRED SELF Confirmed By:Jelani Vargas
--- NOTE | 2023-01-09 18:04 | Electrocardiogram Report ---
Test Reason : Blood Pressure : / mmHG Vent. Rate : 099 BPM Atrial Rate : 099 BPM P-R Int : 142 ms QRS Dur : 096 ms QT Int : 346 ms P-R-T Axes : 079 085 076 degrees QTc Int : 444 ms Normal sinus rhythm Incomplete right bundle branch block Abnormal ECG Confirmed by Rip Vargas ([id number]) on 01/09/2023 6:04:25 PM Referred By: REFERRED SELF Confirmed By:Jelani Vargas
--- NOTE | 2023-01-09 19:00 | Electrocardiogram Report ---
Test Reason : Blood Pressure : / mmHG Vent. Rate : 061 BPM Atrial Rate : 061 BPM P-R Int : 146 ms QRS Dur : 102 ms QT Int : 476 ms P-R-T Axes : 066 089 150 degrees QTc Int : 479 ms Normal sinus rhythm Incomplete right bundle branch block T wave abnormality, consider inferolateral ischemia Abnormal ECG When compared with ECG of 08-JAN-2023 13:10, (unconfirmed) Vent. rate has decreased BY [address] no longer elevated in Anterior leads Nonspecific T wave abnormality now evident in Inferior leads T wave inversion now evident in Anterolateral leads Confirmed by Rip Vargas ([id number]) on 01/09/2023 7:00:25 PM Referred By: REFERRED SELF Confirmed By:Jelani Vargas
[2023-01-09] MEDS: methylPREDNISolone 40 MG in SYRINGE 0 ML IV SCH (20:12)
[2023-01-09] MEDS: MIRTAZAPINE TAB 15 MG TAB PO SCH (20:13)
[2023-01-10] MEDS: IPRATROPIUM BROMIDE NEB SOLN 0.02% 2.5 ML VIAL INH SCH ×4 (00:10→20:20)
[2023-01-10] MEDS: LEVALBUTEROL 1.25 MG/3 ML NEB NEB SCH ×4 (00:10→20:20)
[2023-01-10] MEDS: CEFEPIME 2,000 MG in SYRINGE 0 ML IV SCH ×3 (04:35→20:58)
[2023-01-10 06:14] LABS: Hematocrit (blood only) 37.3 % (37.0-47.0); Hemoglobin 12.3 g/dl (12.0-16.0); Mean Corpuscular Hemoglobin 32.1 pg (25.0-34.0); Mean Corpuscular Volume 97.4 fL (80.0-100.0); Mean Platelet Volume 9.6 fL (9.4-12.4); Platelet Count 342 K/uL (130-400); RDW Coefficient of Variation 14.8 % (11.5-14.5); RDW Standard Deviation 53.1 fL (36.4-46.3); Red Blood Count 3.83 M/uL (4.20-5.40); White Blood Count 26.23 K/ul (4.8-10.8)
[2023-01-10 06:40] LABS: BUN Creatinine Ratio 45.1 (10-20); Calcium 9.4 mg/dl (8.6-10.3); Creatinine Clr Calc Pharmacy 121.2 ml/min; Est GFR (African American) 125.5 ml/min; Est GFR (Non-African American) 108.3 ml/min; Magnesium 2.3 mg/dl (1.7-2.4); Phosphorus 2.8 mg/dl (2.5-4.9); Potassium 4.8 mmol/L (3.5-5.1)
[2023-01-10 07:31] LABS: Partial Thromboplastin Ratio 2.1
[2023-01-10 07:32] LABS: Partial Thromboplastin Time 58.3 Seconds (21.0-31.0)
[2023-01-10] MEDS: methylPREDNISolone 40 MG in SYRINGE 0 ML IV SCH (08:15)
[2023-01-10] MEDS: DOXYCYCLINE HYCLATE 100 MG CAP PO SCH ×2 (08:16→21:00)
[2023-01-10] MEDS: ESCITALOPRAM OXALATE 20 MG TAB PO SCH (08:16)
[2023-01-10] MEDS: ATORVASTATIN 40 MG TAB PO SCH (08:16)
[2023-01-10] MEDS: ASPIRIN 81 MG ECTAB PO SCH (08:16)
[2023-01-10] MEDS: buprenorphine HCL 8 MG SUBL SL SCH ×2 (08:16→20:58)
[2023-01-10] MEDS: clonazePAM 1 MG TAB PO SCH ×2 (08:16→20:57)
[2023-01-10] MEDS: GABAPENTIN 600 MG TAB PO SCH ×4 (08:17→20:59)
[2023-01-10] MEDS ORDERED: methylPREDNISolone 40 MG in SYRINGE 0 ML IV SCH (09:00)
[2023-01-10] MEDS: NICOTINE 21 MG/24 HR TDSY TD SCH (10:11)
[2023-01-10] MEDS: FLUTICASONE/VILANTEROL 100/25MCG 14 PUFFS/INHALER INH SCH (10:13)
--- NOTE | 2023-01-10 10:15 | Cardiology Progress Note ---
Date of Service January 10, 2023 Assessment & Plan (1) Acute respiratory failure with hypoxia: (2) Abnormal EKG: (3) Elevated troponin: (4) Tobacco use: (5) Chronic pain: (6) Anxiety: (7) Systolic dysfunction, left ventricle: Plan 57 year old female presenting with acute hypoxic respiratory failure secondary to multifocal pneumonia in the setting of underlying emphysema from chronic tobacco abuse. Elevated troponin noted along with an abnormal EKG, resting echocardiography revealing severe LV systolic dysfunction, EF 25 to 30% with severe diffuse LV hypokinesis affecting the mid and apical segments with relative sparing of the basal segments. Overall picture is that of the stress- induced cardiomyopathy though ischemia due to obstructive coronary artery disease is certainly a possibility. Patient significantly improved symptomatically, without manifestation of acute decompensated congestive heart failure signs/symptoms RECOMMENDATIONS: Continue supportive care. Patient will have completed 48 hours of IV heparin around noon today. Attempt initiation of low-dose beta-alex therapy today with metoprolol succinate 12.5 mg/day. Repeat resting echocardiography Friday. Please make patient NPO after midnight on Friday for possible diagnostic cardiac catheterization on Friday. Continue aspirin and statin. Tobacco cessation counseling provided. Admission and Anticipated Discharge Date Admission Date: January 08, 2023 Supervising Physician Co-Signing Physician Notes Supervising Physician Attestation: I have personally performed a history and physical examination on the patient. I agree with the physician nutrition assistant's findings and plan as documented with the following additions. Subjective: Patient feeling improved. Still with coarse breath sounds. Telemetry reveals sinus rhythm. Exam: Pulmonary: Mild wheezing, trending toward improvement, no rales or rhonchi Cardiovascular: Regular rhythm, no murmurs, no edema Data: High-sensitivity troponin peaked at 1613 and trended down Assessment and Plan: As noted above -Discontinue heparin having completed 48 hours of therapy. -Start DVT prophylaxis dose Lovenox. Metoprolol succinate 12.5 mg daily added. As previously noted in my discussion with the patient, her baseline systolic blood pressure when she is well and it the doctor's office is in the range of 90-100 mm Hg, and this prevents addition of an GABY inhibitor, angiotensin receptor alex, or nephrolysin inhibitor. Plan for repeat limited echocardiogram on 01/13/2023 Dr Walker assuming service on 01/11/2023. Goran Norberto Hossein, DO Subjective Patient seen and examined. Chart, medications, and telemetry reviewed. Daughter at bedside Patient feels better today as compared to yesterday and the day before. Breathing is easier. Cough/congestion is easier to expectorate thick green sputum. No chest pain. No palpitations. No orthopnea or PND. No peripheral edema. EKG on January 09, 2023 revealed normal sinus rhythm at 61 bpm with an incomplete right bundle branch block, inferolateral T wave changes suggestive of ischemia. When compared to prior available tracing, ST elevation is no longer noted in anterior leads, T wave inversions now present in the anterolateral leads Limited TTE on January 09, 2023 with subtle improvement in overall LV systolic function, severe diffuse LV hypokinesis affecting the mid and apical segments with relative sparing of the basal segments, EF 25 to 30% Telemetry: Sinus throughout, currently 84 bpm Review of Systems Review of Systems: Complete Review of Systems is as stated above, negative, or noncontributory. Physical Exam Physical Exam: General: A&Ox3. NAD. HENT: Normocephalic. Atraumatic. Eyes: PER. Conjunctiva pink, sclera injected. Neck: No carotid bruits. No JVD. Heart: RRR, 80 bpm. No murmur. Lungs: Improved aeration, less wheezing. Abdomen: +BS. Soft. Nontender. No masses or organomegaly. Extremities: No clubbing, cyanosis, or edema. Limited neurological examination is without focal deficits. Pulses: radial=2/4, posterior tibial=1/4. Results & Data Vital Signs (Past 12 Hours) Vital Signs Temp Pulse Resp BP Pulse Ox O2 Del Method O2 Flow Rate 01/10/23 07:56 36.7 C 79 20 104/68 98 Nasal Cannula 4 01/10/23 07:08 56 L 18 94 Oxymask 4 01/10/23 03:31 36.5 C 65 18 106/67 95 Oxymask 4 01/10/23 00:11 66 16 94 Oxymask 4 01/09/23 22:51 36.5 C 74 18 104/65 94 Oxymask 4 Laboratory Results Coagulation 01/09/23 01/09/23 01/10/23 Range/Units 10:54 18:33 05:48 APTT 70.6 H* 55.0 H* 58.3 H* (21.0-31.0) Seconds CBC 01/10/23 Range/Units 05:48 WBC 26.23 H (4.8-10.8) K/ul RBC 3.83 L (4.20-5.40) M/uL Hgb 12.3 (12.0-16.0) g/dl Hct 37.3 (37.0-47.0) % Plt Count 342 (130-400) K/uL Comprehensive Metabolic Panel 01/10/23 Range/Units 05:48 Sodium 138 (136-145) mmol/L Potassium 4.8 D (3.5-5.1) mmol/L Chloride 103 (98-107) mmol/L Carbon Dioxide 34 H (21-32) mmol/L BUN 23 (6-23) mg/dl Creatinine 0.51 L (0.6-1.2) mg/dl Glucose 154 H (70-99(Fasting)) mg/dl Calcium 9.4 (8.6-10.3) mg/dl Intake and Output 01/09/23 01/10/23 01/10/23 22:59 06:59 14:59 Intake Total 236.15 / 1030.35 150 / 1030.35 236.95 / 236.95 Output Total 250 / 750 500 / 750 Balance -13.85 / 280.35 -350 / 280.35 236.95 / 236.95 Intake: IV 136.15 / 280.35 236.95 / 236.95 Heparin Sodium/Dextrose 25,000 136.15 / 280.35 236.95 / 236.95 units In 500 ml @ 1,050 UNITS/ HR 21 mls/hr IV [id number] Rx #:[id number] Oral 100 / 750 150 / 750 Output: Urine 250 / 750 500 / 750 Other: # Unmeasured Voids 2 Weight 71.4 kg Weight Measurement Method Built in [facility]
[2023-01-10] MEDS: METOPROLOL SUCC 25MG EXT REL TAB PO SCH (10:43)
[2023-01-10] MEDS: HEPARIN SODIUM/DEXTROSE 25,000 UNITS/500 ML BAG IV SCH (11:27)
--- NOTE | 2023-01-10 15:38 | Hospitalist Progress Note ---
Date of Service January 10, 2023 Assessment & Plan (1) Multifocal pneumonia: Plan 57-year-old female with PMH of GERD, anxiety, tobacco use (smoking since last 30 years), chronic pain, history of splenectomy presented to ER 01/08 with complaint of worsening exertional shortness of breath x 3 weeks. Green productive cough x1 week. Severely increased shortness of breath on the day of arrival. She is being managed for the following: Multifocal pneumonia Sepsis POA: Likely secondary to above Acute respiratory failure with hypoxia: Likely secondary to above History of asplenia: In ER patient afebrile, tachycardic, BP stable, 83% on room air up to 94% on 4 L nasal cannula. WBC 20.25K. D-dimer nl. Lactate WNL. Increased work of breathing noted. DDx bronchitis, pneumonia. Suspect underlying undiagnosed COPD and likely COPD exacerbation Resp Biofire and covid neg. Longstanding smoking hx, pt counselled, didn't like counselling. CT chest w/ multifocal Pna and emphysema. C/w NC O2, wean down as tolerated Continue with nebs and Solu-Medrol RTC - taper down steroid Continue with cefepime and doxycycline 01/08 Follow admitting blood and sputum culture. Patient febrile, feels clinically better. Will need CXR and PFT in 6 weeks time upon discharge, possible establish with pulmonology. Elevated troponin ACS versus demand ischemia Possible stress-induced cardiomyopathy Patient presents with acute illness [see above], troponin elevated at 500, peaked at 1613, down trended to 888. LDL 70. Patient with no chest pain or tightness or pressure. Serial EKG reviewed, 01/08 echo with EF of 25 to 30%, severe diffuse left ventricular hypokinesis affecting the mid and apical segments with relative sparing of the basal segments. Grade 2 diastolic function noted. Repeat echo on 01/09 with EF of 25 to 30%, subtle improvement in the overall left ventricular systolic function noted. Patient clinically not volume overloaded, will continue to monitor. Not in heart failure. Cardiology on board, heparin drip discontinued, plan for STORMY and possible cardiac cath on Friday. N.p.o. Friday midnight. Continue with telemetry monitoring. Other chronic medical conditions: Anxiety - Continue escitalopram, clonazepam Chronic pain - Continue buprenorphine, gabapentin Tobacco use - 1 pack/day x > 30 years, Smoking cessation advised. Currently using nicotine patch. DVT Prophylaxis: On IV heparin currently Full Code Follows with Jillian Persaud PA-C in [place] for routine care Time spent evaluating patient, direct bedside care, chart review, placing orders, interpretation of diagnostic studies, discussion with consultants, patient, and family members, as well as other required patient management activities is 60 minutes. Please note the above document was generated using voice recognition software. It may contain grammatical, syntax or spelling errors. Any formal questions or concerns about the content, text or information contained within the body of this dictation should be directly addressed to the undersigned for clarification. Admission and Anticipated Discharge Date Admission Date: January 08, 2023 Subjective Patient seen and examined at bedside as a follow-up of acute respiratory failure with hypoxia, elevated troponin [likely demand ischemia versus ACS], multifocal pneumonia. Patient was lying in bed, on 2 L oxygen via nasal cannula, resting comfortably, not in acute distress. Patient's best friend at bedside. Patient counseled regarding smoking cessation again, was positive. Using nicotine patch now. Patient reports improvement in her cough, improvement in the color of the sputum to roll up guider operator yellow now, patient has been afebrile, patient reports feeling better. Reports eating okay. Patient's daughter Georgia was given a phone call and updated about the current status of the patient, answered all her questions. Physical Exam Physical Exam: GENERAL: Alert and oriented x3. NAD, on 2L NC O2. Appears ill/sick/frail. HEENT: No pallor, no icterus. Pupils equal, round and reactive to light. Oral mucosa moist. NECK: No JVD, no neck masses. HEART: S1 and S2 heard. Regular rate and rhythm. No murmur, no gallop. RESPIRATORY SYSTEM: Normal AP diameter. No accessory muscle use. b/l rhonci, b/l crackles. improving. ABDOMEN: Soft, bowel sounds present, nontender, no distention. CENTRAL NERVOUS SYSTEM: No facial droop. Speech is clear. Obeys simple commands. Moves extremities. EXTREMITIES: No edema, no erythema seen. Results & Data Results & Data Vital Signs (Past 12 Hours) Vital Signs Temp Pulse Resp BP Pulse Ox O2 Del Method O2 Flow Rate 01/10/23 15:13 36.6 C 72 20 107/64 92 Nasal Cannula 2 01/10/23 13:10 78 18 93 Nasal Cannula 2 01/10/23 11:45 36.4 C L 74 20 112/70 90 Nasal Cannula 4 01/10/23 07:56 36.7 C 79 20 104/68 98 Nasal Cannula 4 01/10/23 07:08 56 L 18 94 Oxymask 4
[2023-01-10] MEDS: MIRTAZAPINE TAB 15 MG TAB PO SCH (21:00)
[2023-01-11] MEDS: IPRATROPIUM BROMIDE NEB SOLN 0.02% 2.5 ML VIAL INH SCH ×4 (01:01→18:59)
[2023-01-11] MEDS: LEVALBUTEROL 1.25 MG/3 ML NEB NEB SCH ×4 (01:01→18:59)
[2023-01-11] MEDS: CEFEPIME 2,000 MG in SYRINGE 0 ML IV SCH ×3 (03:41→21:02)
[2023-01-11 06:49] LABS: Hematocrit (blood only) 38.9 % (37.0-47.0); Hemoglobin 12.7 g/dl (12.0-16.0); Mean Corpuscular Hemoglobin 32.3 pg (25.0-34.0); Mean Corpuscular Hgb Conc 32.6 g/dL (32.0-36.0); Mean Platelet Volume 9.6 fL (9.4-12.4); Platelet Count 373 K/uL (130-400); RDW Coefficient of Variation 14.9 % (11.5-14.5); RDW Standard Deviation 54.9 fL (36.4-46.3); Red Blood Count 3.93 M/uL (4.20-5.40); White Blood Count 18.95 K/ul (4.8-10.8)
[2023-01-11 07:18] LABS: Calcium 9.3 mg/dl (8.6-10.3); Creatinine Clr Calc Pharmacy 104.8 ml/min; Est GFR (African American) 119.6 ml/min; Est GFR (Non-African American) 103.2 ml/min; Phosphorus 3.6 mg/dl (2.5-4.9); Potassium 3.8 mmol/L (3.5-5.1)
[2023-01-11] MEDS: NICOTINE 21 MG/24 HR TDSY TD SCH (08:04)
[2023-01-11] MEDS: GABAPENTIN 600 MG TAB PO SCH ×4 (08:05→21:05)
[2023-01-11] MEDS: DOXYCYCLINE HYCLATE 100 MG CAP PO SCH ×2 (08:05→21:06)
[2023-01-11] MEDS: METOPROLOL SUCC 25MG EXT REL TAB PO SCH (08:06)
[2023-01-11] MEDS: ASPIRIN 81 MG ECTAB PO SCH (08:06)
[2023-01-11] MEDS: ATORVASTATIN 40 MG TAB PO SCH (08:07)
[2023-01-11] MEDS: clonazePAM 1 MG TAB PO SCH ×2 (08:08→21:03)
[2023-01-11] MEDS: buprenorphine HCL 8 MG SUBL SL SCH ×2 (08:08→21:03)
[2023-01-11] MEDS: ESCITALOPRAM OXALATE 20 MG TAB PO SCH (08:08)
--- NOTE | 2023-01-11 08:50 | Electrocardiogram Report ---
Test Reason : Blood Pressure : / mmHG Vent. Rate : 057 BPM Atrial Rate : 057 BPM P-R Int : 146 ms QRS Dur : 098 ms QT Int : 494 ms P-R-T Axes : 072 092 147 degrees QTc Int : 480 ms Sinus bradycardia Rightward axis Incomplete right bundle branch block Abnormal ECG When compared with ECG of 09-JAN-2023 10:10, Significant changes have occurred Confirmed by Zaire Russo ([id number]) on 01/11/2023 8:49:59 AM Referred By: REFERRED SELF Confirmed By:Zaire Russo
[2023-01-11] MEDS ORDERED: methylPREDNISolone 40 MG in SYRINGE 0 ML IV SCH (09:00)
[2023-01-11] MEDS: ENOXAPARIN INJ 40 MG/0.4 ML SYR SQ SCH (10:38)
[2023-01-11] MEDS: FLUTICASONE/VILANTEROL 100/25MCG 14 PUFFS/INHALER INH SCH (10:39)
--- NOTE | 2023-01-11 11:54 | Cardiology Progress Note ---
Date of Service January 11, 2023 Assessment & Plan (1) Acute respiratory failure with hypoxia: (2) Abnormal EKG: (3) Elevated troponin: (4) Tobacco use: (5) Chronic pain: (6) Anxiety: (7) Systolic dysfunction, left ventricle: Plan 57 year old female presenting with acute hypoxic respiratory failure secondary to multifocal pneumonia in the setting of underlying emphysema from chronic tobacco abuse. Elevated troponin noted along with an abnormal EKG, resting echocardiography revealing severe LV systolic dysfunction, EF 25 to 30% with severe diffuse LV hypokinesis affecting the mid and apical segments with relative sparing of the basal segments. Overall picture is that of the stress- induced cardiomyopathy though ischemia due to obstructive coronary artery disease is certainly a possibility. Patient significantly improved symptomatically, without manifestation of acute decompensated congestive heart failure signs/symptoms. Repeat resting 2D transthoracic echocardiogram in a.m. 01/12/2023. IV heparin discontinued. Continue low-dose beta-alex. Consideration for further ischemic evaluation pending review of echocardiogram. Tobacco cessation counseling provided. Admission and Anticipated Discharge Date Admission Date: January 08, 2023 Subjective Patient seen examined the bedside. Feeling better from a cardiovascular perspe ctive. Fluid balance -400 cc. Received 2 doses of metoprolol 12.5 mg. Blood pressure remains borderline hypotensive. Denies chest discomfort or heaviness. No palpitations. Telemetry reveals sinus rhythm in the 60s. Review of Systems Review of Systems: All systems reviewed & are unremarkable except as noted in Subjective Physical Exam Constitutional: + ill appearing; no acute distress Respiratory: no labored breathing and no retractions Auscultation: + diminished lung sounds (Bases bilateral), + rhonchi and + wheezes Cardiovascular: Rate/Rhythm: regular rate and regular rhythm Heart Sounds: normal S1 and normal S2; no murmur Vessels: radial pulses present; no JVD and no carotid bruit Extremities: no edema Gastrointestinal (Abdomen): Inspection/Auscultation: abdomen normal to inspection and normal bowel sounds; abdomen not distended Percussion/Palpation: abdomen soft; abdomen nontender, no guarding and abdomen not rigid Neurologic: CN's II-XI intact bilaterally and moves all extremities; no focal motor deficits Results & Data Vital Signs (Past 12 Hours) Vital Signs Temp Pulse Pulse Resp BP Pulse Ox O2 Del Method 01/11/23 08:58 Room Air 01/11/23 06:50 58 L 18 95 Nasal Cannula 01/11/23 04:14 36.4 C L 62 20 114/76 93 Nasal Cannula 01/11/23 01:03 60 16 92 Nasal Cannula 01/10/23 23:53 77 O2 Flow Rate 01/11/23 08:58 01/11/23 06:50 2 01/11/23 04:14 2 01/11/23 01:03 2 01/10/23 23:53 Laboratory Results CBC 01/11/23 Range/Units 06:16 WBC 18.95 H (4.8-10.8) K/ul RBC 3.93 L (4.20-5.40) M/uL Hgb 12.7 (12.0-16.0) g/dl Hct 38.9 (37.0-47.0) % Plt Count 373 (130-400) K/uL Comprehensive Metabolic Panel 01/11/23 Range/Units 06:16 Sodium 142 (136-145) mmol/L Potassium 3.8 D (3.5-5.1) mmol/L Chloride 105 (98-107) mmol/L Carbon Dioxide 35 H (21-32) mmol/L BUN 23 (6-23) mg/dl Creatinine 0.59 L (0.6-1.2) mg/dl Glucose 105 H (70-99(Fasting)) mg/dl Calcium 9.3 (8.6-10.3) mg/dl Intake and Output 01/10/23 01/11/23 01/11/23 22:59 06:59 14:59 Intake Total 480.85 / 1526.35 240 / 1526.35 Output Total 500 / 1000 500 / 1000 600 / 600 Balance -19.15 / 526.35 -260 / 526.35 -600 / -600 Intake: IV 80.85 / 406.35 Heparin Sodium/Dextrose 25,000 80.85 / 406.35 units In 500 ml @ 1,050 UNITS/ HR 21 mls/hr IV .[id number] APRIL Rx #:[id number] Oral 400 / 1120 240 / 1120 Output: Urine 500 / 1000 500 / 1000 600 / 600 Other: # Unmeasured Voids 2 Weight 72.8 kg Weight Measurement Method Built in [facility]
--- NOTE | 2023-01-11 17:32 | Hospitalist Progress Note ---
Date of Service January 11, 2023 Assessment & Plan (1) Multifocal pneumonia: Plan 57-year-old female with PMH of GERD, anxiety, tobacco use (smoking since last 30 years), chronic pain, history of splenectomy presented to ER 01/08 with complaint of worsening exertional shortness of breath x 3 weeks. Green productive cough x1 week. Severely increased shortness of breath on the day of arrival. She is being managed for the following: Multifocal pneumonia Sepsis POA: Likely secondary to above Acute respiratory failure with hypoxia: Likely secondary to above History of asplenia: In ER patient afebrile, tachycardic, BP stable, 83% on room air up to 94% on 4 L nasal cannula. WBC 20.25K. D-dimer nl. Lactate WNL. Increased work of breathing noted. DDx bronchitis, pneumonia. Suspect underlying undiagnosed COPD and likely COPD exacerbation Resp Biofire and covid neg. Longstanding smoking hx, pt counselled, didn't like counselling. CT chest w/ multifocal Pna and emphysema. C/w NC O2, wean down as tolerated Continue with nebs and Solu-Medrol RTC - taper down steroid, to po from [facility]. Continue with cefepime and doxycycline 01/08 Follow admitting blood and sputum culture. Patient afebrile, feels clinically better. Will need CXR and PFT in 6 weeks time upon discharge, possible establish with pulmonology. Elevated troponin ACS versus demand ischemia Possible stress-induced cardiomyopathy Patient presents with acute illness [see above], troponin elevated at 500, peaked at 1613, down trended to 888. LDL 70. Patient with no chest pain or tightness or pressure. Serial EKG reviewed, 01/08 echo with EF of 25 to 30%, severe diffuse left ventricular hypokinesis affecting the mid and apical segments with relative sparing of the basal segments. Grade 2 diastolic function noted. Repeat echo on 01/09 with EF of 25 to 30%, subtle improvement in the overall left ventricular systolic function noted. Patient clinically not volume overloaded, will continue to monitor. Not in heart failure. Cardiology on board, s/p heparin drip x 48 hrs, plan for STORMY and possible cardiac cath on Friday. N.p.o. Friday midnight. Continue with telemetry monitoring. Other chronic medical conditions: Anxiety - Continue escitalopram, clonazepam Chronic pain - Continue buprenorphine, gabapentin Tobacco use - 1 pack/day x > 30 years, Smoking cessation advised. Currently using nicotine patch. DVT Prophylaxis: lovenox sc Full Code Follows with Jillian Persaud PA-C in [place] for routine care Time spent evaluating patient, direct bedside care, chart review, placing orders, interpretation of diagnostic studies, discussion with consultants, patient, and family members, as well as other required patient management activities is 60 minutes. Please note the above document was generated using voice recognition software. It may contain grammatical, syntax or spelling errors. Any formal questions or concerns about the content, text or information contained within the body of this dictation should be directly addressed to the undersigned for clarification. Admission and Anticipated Discharge Date Admission Date: January 08, 2023 Subjective Patient seen and examined at bedside as a follow-up of acute respiratory failure with hypoxia, elevated troponin [likely demand ischemia versus ACS], multifocal pneumonia. Patient was lying in bed, on 1 L oxygen via nasal cannula, resting comfortably, not in acute distress. Patient reports improvement in her cough, improvement in the color of the sputum to reconsignment clerk yellow, patient has been afebrile, patient reports feeling better. Reports eating okay. Physical Exam Physical Exam: GENERAL: Alert and oriented x3. NAD, on 1L NC O2. HEENT: No pallor, no icterus. Pupils equal, round and reactive to light. Oral mucosa moist. NECK: No JVD, no neck masses. HEART: S1 and S2 heard. Regular rate and rhythm. No murmur, no gallop. RESPIRATORY SYSTEM: Normal AP diameter. No accessory muscle use. b/l rhonci, b/l crackles. improving. ABDOMEN: Soft, bowel sounds present, nontender, no distention. CENTRAL NERVOUS SYSTEM: No facial droop. Speech is clear. Obeys simple commands. Moves extremities. EXTREMITIES: No edema, no erythema seen. Results & Data Results & Data Vital Signs (Past 12 Hours) Vital Signs Temp Pulse Resp BP Pulse Ox O2 Del Method O2 Flow Rate 01/11/23 15:40 36.8 C 66 18 128/78 97 Room Air 01/11/23 13:22 78 18 92 Nasal Cannula 1 01/11/23 08:58 Room Air 01/11/23 06:50 58 L 18 95 Nasal Cannula 2
[2023-01-11] MEDS: MIRTAZAPINE TAB 15 MG TAB PO SCH (21:07)
[2023-01-12] MEDS: IPRATROPIUM BROMIDE NEB SOLN 0.02% 2.5 ML VIAL INH SCH ×4 (00:45→19:58)
[2023-01-12] MEDS: LEVALBUTEROL 1.25 MG/3 ML NEB NEB SCH ×4 (00:45→19:58)
[2023-01-12] MEDS: CEFEPIME 2,000 MG in SYRINGE 0 ML IV SCH ×2 (03:09→12:44)
[2023-01-12 07:01] LABS: Hematocrit (blood only) 41.5 % (37.0-47.0); Hemoglobin 13.3 g/dl (12.0-16.0); Mean Corpuscular Hemoglobin 31.7 pg (25.0-34.0); Mean Corpuscular Volume 98.8 fL (80.0-100.0); Mean Platelet Volume 9.4 fL (9.4-12.4); Platelet Count 406 K/uL (130-400); RDW Standard Deviation 54.8 fL (36.4-46.3); White Blood Count 15.32 K/ul (4.8-10.8)
[2023-01-12 07:18] LABS: BUN Creatinine Ratio 40.4 (10-20); Calcium 9.2 mg/dl (8.6-10.3); Creatinine Clr Calc Pharmacy 118.9 ml/min; Est GFR (African American) 124.7 ml/min; Est GFR (Non-African American) 107.6 ml/min; Potassium 4.3 mmol/L (3.5-5.1)
[2023-01-12] MEDS: ESCITALOPRAM OXALATE 20 MG TAB PO SCH (08:38)
[2023-01-12] MEDS: ASPIRIN 81 MG ECTAB PO SCH (08:38)
[2023-01-12] MEDS: clonazePAM 1 MG TAB PO SCH ×2 (08:38→20:40)
[2023-01-12] MEDS: METOPROLOL SUCC 25MG EXT REL TAB PO SCH (08:38)
[2023-01-12] MEDS: GABAPENTIN 600 MG TAB PO SCH ×4 (08:38→20:41)
[2023-01-12] MEDS: buprenorphine HCL 8 MG SUBL SL SCH ×2 (08:38→20:40)
[2023-01-12] MEDS: ATORVASTATIN 40 MG TAB PO SCH (08:38)
[2023-01-12] MEDS: NICOTINE 21 MG/24 HR TDSY TD SCH (08:39)
[2023-01-12] MEDS: ENOXAPARIN INJ 40 MG/0.4 ML SYR SQ SCH (08:39)
[2023-01-12] MEDS: DOXYCYCLINE HYCLATE 100 MG CAP PO SCH ×2 (08:39→20:41)
[2023-01-12] MEDS: FLUTICASONE/VILANTEROL 100/25MCG 14 PUFFS/INHALER INH SCH (08:40)
--- NOTE | 2023-01-12 11:11 | Cardiology Progress Note ---
Date of Service January 12, 2023 Assessment & Plan (1) Takotsubo cardiomyopathy: (2) Systolic dysfunction, left ventricle: (3) Acute respiratory failure with hypoxia: (4) Elevated troponin: (5) Tobacco use: (6) Chronic pain: (7) Anxiety: Plan 57 year old female presenting with acute hypoxic respiratory failure secondary to multifocal pneumonia in the setting of underlying emphysema from chronic tobacco abuse. Elevated troponin noted along with an abnormal EKG, resting echocardiography revealing severe LV systolic dysfunction, EF 25 to 30% with severe diffuse LV hypokinesis affecting the mid and apical segments with relative sparing of the basal segments. Overall picture is that of the stress- induced cardiomyopathy. Patient significantly improved symptomatically, without manifestation of acute decompensated congestive heart failure signs/symptoms. Repeat echocardiogram performed today demonstrates normal LV function. Previously noted regional wall motion abnormality sparing the basal segments has resolved. Continue low-dose beta-alex. Tobacco cessation counseling provided. Admission and Anticipated Discharge Date Admission Date: January 08, 2023 Subjective Patient seen and examined at the bedside. States "I feel much better today". Cough unchanged with minimal sputum production. Continues to wheeze. No orthopnea, PND, or edema. Denies chest pain. Telemetry reveals sinus rhythm. Review of Systems Review of Systems: All systems reviewed & are unremarkable except as noted in Subjective Physical Exam Constitutional: + ill appearing; no acute distress Respiratory: no labored breathing and no retractions Auscultation: + diminished lung sounds (Bases bilateral), + rhonchi and + wheezes Cardiovascular: Rate/Rhythm: regular rate and regular rhythm Heart Sounds: normal S1 and normal S2; no murmur Vessels: radial pulses present; no JVD and no carotid bruit Extremities: no edema Gastrointestinal (Abdomen): Inspection/Auscultation: abdomen normal to inspection and normal bowel sounds; abdomen not distended Percussion/Palpation: abdomen soft; abdomen nontender, no guarding and abdomen not rigid Neurologic: CN's II-XI intact bilaterally and moves all extremities; no focal motor deficits Results & Data Vital Signs (Past 12 Hours) Vital Signs Temp Pulse Resp BP Pulse Ox O2 Del Method O2 Flow Rate 01/12/23 09:11 Nasal Cannula 2 01/12/23 07:36 36.8 C 69 18 105/62 91 Nasal Cannula 2 01/12/23 06:57 64 16 96 Nasal Cannula 3 01/12/23 03:45 36.3 C L 61 14 104/71 95 Room Air 01/12/23 00:46 64 18 87 L Nasal Cannula 1
[2023-01-12] MEDS: predniSONE 20 MG TAB PO SCH (11:34)
--- NOTE | 2023-01-12 16:04 | Hospitalist Progress Note ---
Date of Service January 12, 2023 Assessment & Plan (1) Multifocal pneumonia: Plan 57-year-old female with PMH of GERD, anxiety, tobacco use (smoking since last 30 years), chronic pain, history of splenectomy presented to ER 01/08 with complaint of worsening exertional shortness of breath x 3 weeks. Green productive cough x1 week. Severely increased shortness of breath on the day of arrival. She is being managed for the following: Multifocal pneumonia Sepsis POA: Likely secondary to above Acute respiratory failure with hypoxia: Likely secondary to above History of asplenia: In ER patient afebrile, tachycardic, BP stable, 83% on room air up to 94% on 4 L nasal cannula. WBC 20.25K. D-dimer nl. Lactate WNL. Increased work of breathing noted. DDx bronchitis, pneumonia. Suspect underlying undiagnosed COPD and likely COPD exacerbation Resp Biofire and covid neg. Longstanding smoking hx, pt counselled, didn't like counselling. CT chest w/ multifocal Pna and emphysema. C/w NC O2, wean down as tolerated Continue with nebs and Solu-Medrol RTC - taper down steroid, to po from 01/12 for 4 days. Continue with cefepime 01/08 --> rocephin 01/12 and doxycycline 01/08 Sp Cx w/ S Pneumoniae, f/u Admitting bl cx. Patient afebrile, feels clinically better. Will need CXR and PFT in 6 weeks time upon discharge, possible establish with pulmonology. Elevated troponin ACS versus demand ischemia Possible stress-induced cardiomyopathy Patient presents with acute illness [see above], troponin elevated at 500, peaked at 1613, down trended to 888. LDL 70. Patient with no chest pain or tightness or pressure. Serial EKG reviewed, 01/08 echo with EF of 25 to 30%, severe diffuse left ventricular hypokinesis affecting the mid and apical segments with relative sparing of the basal segments. Grade 2 diastolic function noted. Repeat echo on 01/09 with EF of 25 to 30%, subtle improvement in the overall left ventricular systolic function noted. Repeat Echo 01/12 w/ resolution of above abn in echo. Patient clinically not volume overloaded, will continue to monitor. Not in heart failure. Cardiology on board, s/p heparin drip x 48 hrs, OP f/u for ischemic work up. Continue with telemetry monitoring. Other chronic medical conditions: Anxiety - Continue escitalopram, clonazepam Chronic pain - Continue buprenorphine, gabapentin Tobacco use - 1 pack/day x > 30 years, Smoking cessation advised. Currently using nicotine patch. DVT Prophylaxis: lovenox sc Full Code Follows with Jillian Persaud PA-C in [place] for routine care Dispo: james wiggins Updated pt's dtr varinder over the phone. Time spent evaluating patient, direct bedside care, chart review, placing ord ers, interpretation of diagnostic studies, discussion with consultants, patient, and family members, as well as other required patient management activities is 60 minutes. Please note the above document was generated using voice recognition software. It may contain grammatical, syntax or spelling errors. Any formal questions or concerns about the content, text or information contained within the body of this dictation should be directly addressed to the undersigned for clarification. Admission and Anticipated Discharge Date Admission Date: January 08, 2023 Subjective Patient seen and examined at bedside as a follow-up of acute respiratory failure with hypoxia, elevated troponin [likely demand ischemia versus ACS], multifocal pneumonia. Patient was lying in bed, on 2 L oxygen via nasal cannula, resting comfortably, not in acute distress. Patient reports improvement in her cough, improvement in the color of the sputum to quiller machine fixer yellow, patient has been afebrile, patient reports feeling better. Reports eating okay. Physical Exam Physical Exam: GENERAL: Alert and oriented x3. NAD, on 2L NC O2. HEENT: No pallor, no icterus. Pupils equal, round and reactive to light. Oral mucosa moist. NECK: No JVD, no neck masses. HEART: S1 and S2 heard. Regular rate and rhythm. No murmur, no gallop. RESPIRATORY SYSTEM: Normal AP diameter. No accessory muscle use. b/l rhonci, b/l crackles. improving. ABDOMEN: Soft, bowel sounds present, nontender, no distention. CENTRAL NERVOUS SYSTEM: No facial droop. Speech is clear. Obeys simple commands. Moves extremities. EXTREMITIES: No edema, no erythema seen. Results & Data Results & Data Vital Signs (Past 12 Hours) Vital Signs Temp Pulse Resp BP Pulse Ox O2 Del Method O2 Flow Rate 01/12/23 13:20 81 18 93 Nasal Cannula 2 01/12/23 11:08 36.5 C 70 18 93/62 L 93 Nasal Cannula 2 01/12/23 09:11 Nasal Cannula 2 01/12/23 07:36 36.8 C 69 18 105/62 91 Nasal Cannula 2 01/12/23 06:57 64 16 96 Nasal Cannula 3
[2023-01-12] MEDS ORDERED: cefTRIAXone SODIUM 2,000 MG in DEXTROSE 5% 50 ML IV SCH (18:00)
[2023-01-12] MEDS: MIRTAZAPINE TAB 15 MG TAB PO SCH (20:42)
[2023-01-13] MEDS: IPRATROPIUM BROMIDE NEB SOLN 0.02% 2.5 ML VIAL INH SCH ×4 (00:41→19:35)
[2023-01-13] MEDS: LEVALBUTEROL 1.25 MG/3 ML NEB NEB SCH ×4 (00:41→19:35)
[2023-01-13 06:53] LABS: Hematocrit (blood only) 43.2 % (37.0-47.0); Hemoglobin 14.2 g/dl (12.0-16.0); Mean Corpuscular Hemoglobin 31.7 pg (25.0-34.0); Mean Corpuscular Hgb Conc 32.9 g/dL (32.0-36.0); Mean Corpuscular Volume 96.4 fL (80.0-100.0); Mean Platelet Volume 9.4 fL (9.4-12.4); Platelet Count 431 K/uL (130-400); RDW Coefficient of Variation 14.8 % (11.5-14.5); RDW Standard Deviation 52.4 fL (36.4-46.3); Red Blood Count 4.48 M/uL (4.20-5.40); White Blood Count 16.29 K/ul (4.8-10.8)
[2023-01-13 07:21] LABS: BUN Creatinine Ratio 35.8 (10-20); Calcium 9.7 mg/dl (8.6-10.3); Creatinine Clr Calc Pharmacy 116.6 ml/min; Est GFR (African American) 123.9 ml/min; Est GFR (Non-African American) 106.9 ml/min; Potassium 4.8 mmol/L (3.5-5.1)
[2023-01-13] MEDS: clonazePAM 1 MG TAB PO SCH ×2 (08:36→20:26)
[2023-01-13] MEDS: ASPIRIN 81 MG ECTAB PO SCH (08:36)
[2023-01-13] MEDS: ESCITALOPRAM OXALATE 20 MG TAB PO SCH (08:36)
[2023-01-13] MEDS: GABAPENTIN 600 MG TAB PO SCH ×4 (08:36→20:26)
[2023-01-13] MEDS: buprenorphine HCL 8 MG SUBL SL SCH ×2 (08:36→20:26)
[2023-01-13] MEDS: METOPROLOL SUCC 25MG EXT REL TAB PO SCH (08:36)
[2023-01-13] MEDS: predniSONE 20 MG TAB PO SCH (08:36)
[2023-01-13] MEDS: DOXYCYCLINE HYCLATE 100 MG CAP PO SCH ×2 (08:36→20:26)
[2023-01-13] MEDS: ATORVASTATIN 40 MG TAB PO SCH (08:36)
[2023-01-13] MEDS: ENOXAPARIN INJ 40 MG/0.4 ML SYR SQ SCH (08:37)
[2023-01-13] MEDS: FLUTICASONE/VILANTEROL 100/25MCG 14 PUFFS/INHALER INH SCH (08:37)
[2023-01-13] MEDS: NICOTINE 21 MG/24 HR TDSY TD SCH (08:37)
[2023-01-13] MEDS ORDERED: ALPRAZolam 0.25 MG TABLET PO ONE (10:28)
[2023-01-13 11:08] LABS: Allen Test Pos (Pos); Base Excess ABG 14.9 mEq/L (-9-1.8); HCO3 ABG 41 mmol/L (19-24); Oxygen Saturation ABG 92.7 % (90-95); PCO2 ABG 55 mmHg (35-46); PO2 ABG 63 mmHg (80-95); pH ABG 7.48 (7.35-7.45)
--- NOTE | 2023-01-13 11:26 | Cardiology Progress Note ---
Date of Service January 13, 2023 Assessment & Plan (1) Takotsubo cardiomyopathy: (2) Systolic dysfunction, left ventricle: (3) Acute respiratory failure with hypoxia: (4) Elevated troponin: (5) Tobacco use: (6) Chronic pain: (7) Anxiety: Plan 57 year old female presenting with acute hypoxic respiratory failure secondary to multifocal pneumonia in the setting of underlying emphysema from chronic tobacco abuse. Elevated troponin noted along with an abnormal EKG, resting echocardiography revealing severe LV systolic dysfunction, EF 25 to 30% with severe diffuse LV hypokinesis affecting the mid and apical segments with relative sparing of the basal segments. Echocardiogram performed yesterday 01/12/2023 is demonstrating improved LV systolic function and resolution of wall motion abnormalities, however, a repeat echocardiogram was performed again today which demonstrates primarily lateral and septal wall motion abnormalities with mildly reduced LV systolic function. Findings discussed at length with patient and her family at bedside. Recommend cardiac catheterization to exclude underlying ischemic heart disease. Patient agreeable. Unfortunately she consumed breakfast. Planned procedure at approximately 2:00 this afternoon. Further recommendations pending procedure results. Continue low-dose beta-alex. Tobacco cessation counseling provided. Admission and Anticipated Discharge Date Admission Date: January 08, 2023 Subjective Patient seen examined the bedside. Feeling better from a cardiovascular perspective. Anxious for discharge. Repeat limited echocardiogram performed this a.m. demonstrating recurrent wall motion abnormalities without associated symptoms. Patient and family with questions regarding possible underlying ischemic heart disease. Review of Systems Review of Systems: All systems reviewed & are unremarkable except as noted in Subjective Physical Exam Constitutional: + ill appearing; no acute distress Respiratory: no labored breathing and no retractions Auscultation: + diminished lung sounds (Bases bilateral), + rhonchi and + wheezes Cardiovascular: Rate/Rhythm: regular rate and regular rhythm Heart Sounds: normal S1 and normal S2; no murmur Vessels: radial pulses present; no JVD and no carotid bruit Extremities: no edema Gastrointestinal (Abdomen): Inspection/Auscultation: abdomen normal to inspection and normal bowel sounds; abdomen not distended Percussion/Palpation: abdomen soft; abdomen nontender, no guarding and abdomen not rigid Neurologic: CN's II-XI intact bilaterally and moves all extremities; no focal motor deficits Results & Data Vital Signs (Past 12 Hours) Vital Signs Temp Pulse Pulse Resp BP Pulse Ox O2 Del Method 01/13/23 11:11 36.5 C 67 18 95/57 L 95 Nasal Cannula 01/13/23 07:58 36.6 C 76 20 108/69 97 Nasal Cannula 01/13/23 07:30 62 01/13/23 07:30 Nasal Cannula 01/13/23 07:19 68 20 94 Nasal Cannula 01/13/23 03:25 36.4 C L 65 16 97/60 L 95 Nasal Cannula 01/13/23 00:43 74 18 93 Nasal Cannula 01/13/23 00:05 99 H 01/12/23 23:34 36.7 C 73 16 93/62 L 99 Nasal Cannula 01/12/23 23:32 Nasal Cannula O2 Flow Rate 01/13/23 11:11 2 01/13/23 07:58 2 01/13/23 07:30 01/13/23 07:30 2 01/13/23 07:19 2 01/13/23 03:25 2 01/13/23 00:43 2 01/13/23 00:05 01/12/23 23:34 3 01/12/23 23:32 2 Laboratory Results CBC 01/13/23 Range/Units 06:01 WBC 16.29 H (4.8-10.8) K/ul RBC 4.48 (4.20-5.40) M/uL Hgb 14.2 (12.0-16.0) g/dl Hct 43.2 (37.0-47.0) % Plt Count 431 H (130-400) K/uL Comprehensive Metabolic Panel 01/13/23 Range/Units 06:01 Sodium 140 (136-145) mmol/L Potassium 4.8 (3.5-5.1) mmol/L Chloride 97 L (98-107) mmol/L Carbon Dioxide 43 H* (21-32) mmol/L BUN 19 (6-23) mg/dl Creatinine 0.53 L (0.6-1.2) mg/dl Glucose 90 (70-99(Fasting)) mg/dl Calcium 9.7 (8.6-10.3) mg/dl Intake and Output 01/12/23 01/13/23 01/13/23 22:59 06:59 14:59 Intake Total 61.667 / 301.667 240 / 301.667 Output Total 1650 / 1650 Balance -1588.333 / -1348.333 240 / -1348.333 Intake: IV 61.667 / 61.667 cefTRIAXone SODIUM 2,000 mg In 61.667 / 61.667 Dextrose 5% 50 ml @ 100 mls/hr IV Q24H [facility] Rx#:[id number] Oral 240 / 240 Output: Urine 1650 / 1650 Other: # Unmeasured Voids 1 Weight 71.5 kg Weight Measurement Method Built in [facility]
--- NOTE | 2023-01-13 12:38 | Pulmonary Consultation ---
Date of Consultation January 13, 2023 Assessment & Plan (1) Emphysema lung: (2) Acute respiratory failure with hypoxia: (3) Takotsubo cardiomyopathy: (4) Tobacco use: (5) Snoring: (6) Hypercapnia: Plan IMPRESSION: 57-year-old female presented with acute onset of shortness of breath found to have Takotsubo cardiomyopathy with persistent hypoxia and findings of hypercapnia. RECOMMENDATIONS: 1. Emphysema noted on CT - Patient longstanding history of smoking and exam/clinical findings consistent with likely COPD diagnosis. Patient has never undergone formal pulmonary function testing. Given her ongoing symptoms and expiratory wheezes noted on exam, patient may benefit from slight increase in her prednisone dosing at this time as well as with scheduled inhalers as she is likely with persistent exacerbation. She had been placed on Breo in the outpatient setting. Given the lack of clinical history significant for asthma and without the benefit of PFTs, would likely transition this to a LABA/LAMA combination at the time of discharge. Patient warrants outpatient pulmonary evaluation including pulmonary function testing, etc. 2. Acute respiratory failure with hypoxia - On review of the patient's CT, she does not have significant infiltrative changes that would likely constitute her initial degree of hypoxemia. Question if this is driven from her cardiac dysfunction. Her dyspnea has improved as her cardiac function has improved. Question if initial symptoms primarily driven from a cardiac perspective. Regardless, patient has undergone extensive evaluation including multiple echocardiograms and she is scheduled to undergo definitive catheterization procedure today. Continue with supplemental oxygen as needed. We can work on weaning this off in the outpatient setting. 3. Takotsubo's cardiomyopathy - Of uncertain ideology. Appreciate cardiology work-up and management. 4. Tobacco abuse - Patient with [id number] history of smoking. Educated on the importance of smoking cessation moving forward. Patient warrants yearly low-dose CT lung cancer screening images moving forward. 5. Snoring - Patient with history of snoring as well as daytime drowsiness. This is likely contributing to a degree to the patient's hypercapnia. Patient warrants outpatient polysomnography and would advocate for sleep lab assessment given her current oxygen requirement and associated COPD. 6. Hypercapnia - Appears well compensated at this point. Question if the patient's ongoing symptoms of COPD with exacerbation are driving this as well as with poor ventilatory function in the setting of likely sleep apnea. Patient would likely benefit from BiPAP with sleep. She warrants formal outpatient polysomnography evaluation. Thank you for allowing us to participate in the care of this patient. We will be happy to follow along with the patient moving forward. Supervising Physician Co-Signing Physician Notes EMR reviewed and case discussed with SUHAIL. Images were independently reviewed. 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 Chronic hypercarbic respiratory failure which appears well compensated. The patient requires outpatient work-up with complete pulmonary function test including MIP/MEP/MVV. Polysomnography recommended to evaluate for nocturnal hypoxemia/hypoventilation. Smoking cessation recommended. This is largely an outpatient work-up and does not require additional inpatient stay. Is possible the patient's hypercarbia may be exacerbated by use of Subutex, Klonopin, Celexa, Remeron, and Neurontin. The patient does have patchy parenchymal densities and a follow-up CT scan in 8 weeks is recommended after she completes a full course of antimicrobial therapy. Can de-escalate off Rocephin to Ceftin. Would complete 5-day course. Can complete 5-day course of doxycycline as well. Discontinue ICS and replace with Anoro. Rapid taper of prednisone to off after 5 days. According to my discussions with the SUHAIL, the patient is quite adamant about leaving the hospital today. Would be happy to see her back in follow-up in the pulmonary clinic. History of Present Illness Reason for Consultation: ?COPD?Hypercapneic resp failure x chronic?? Requesting Physician: Dr. Padron Attending Physician: Brooke Padron MD History of Present Illness Patient is a 57-year-old female with a significant past medical history of tobacco abuse, chronic pain, anxiety, and asplenia who presented to the emergency department on 01/08 with complaints of abrupt onset of shortness of breath. She has been evaluated by her primary care provider for symptoms related to her breathing. She was started with a rescue inhaler and then was escalated to a Breo inhaler which she has used without significant symptomatic relief. She reports a 40+ pack-year history of smoking of approximately 1.5 packs/day. She has not had a formal diagnosis of COPD. She has never undergone pulmonary function testing. There is no formal imaging other than admission that shows emphysema on the patient's chest CT. She denies any significant occupational exposures. 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 She reports no personal history of malignancy. During evaluation for current hospitalization, the patient was noted to have elevated troponin and was fairly hypoxic. Echocardiogram demonstrated concerns for stress-induced cardiomyopathy. Her echocardiogram has since recovered, however she remains with some dyspnea on exertion and repeat echocardiogram has persistent wall abnormalities. Patient to undergo catheterization today. She did perform two-step assessment today which she states went well, however she is currently requiring 2 L nasal cannula with ambulation. She reports no symptoms of shortness of breath at rest. Interestingly, the patient has had ongoing elevation of her serum CO2. This seems to be well corrected at this time. In conversation with the patient, she does report a significant history of snoring and likely symptoms related to sleep apnea. She reports daytime drowsiness. She has no issues with falling asleep while driving. She has never undergone sleep study or pulmonary function testing. She is never seen a environmental field professional in the outpatient setting. Upon evaluation at bedside, the patient reports that she is feeling much better than when she was initially admitted. She reports that her cough is cleared up from green sputum. She is much less short of breath at this time. She offers no complaints of fevers, chills, chest pain, palpitations, dizziness, or lightheadedness at this point. Allergies Allergy/AdvReac Type Severity Reaction Status Date / Time No Known Allergies Allergy Mild Unverified 12/15/14 06:06 Home Medications Medication Instructions Recorded Confirmed Type albuterol sulfate 90 mcg/actuation 2 inh inhalation Q6H PRN Shortness 01/08/23 01/08/23 History aerosol inhaler Of Breath Or Wheezing buprenorphine HCl 8 mg sublingual 8 mg sublingual BID 01/08/23 01/08/23 History tablet clonazepam 1 mg tablet 1 mg PO BID 01/08/23 01/08/23 History escitalopram oxalate 20 mg tablet 20 mg PO DAILY 01/08/23 01/08/23 History fluticasone furoate 100 1 inh inhalation DAILY 01/08/23 01/08/23 History mcg-vilanterol 25 mcg/dose inhalation powder (Breo Ellipta) gabapentin 600 mg tablet 600 mg PO QID 01/08/23 01/08/23 History mirtazapine 30 mg tablet 30 mg PO HS 01/08/23 01/08/23 History Patient History Medical History Anxiety Chronic pain Tobacco use Surgical History History of ankle surgery History of splenectomy Family History Mother Hypertension Father Leukemia Social History Smoking Status: Current every day smoker Tobacco Type: Cigarettes Cigarettes Per Day: one pack a day; Hx Alcohol Use: No Hx Substance Use: No Preferred Language: Welsh Communication Ability: Effective 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 All else were negative. Physical Exam Physical Exam: VITAL SIGNS - Vital signs and nursing notes were reviewed. GENERAL - 57-year-old female appearing her stated age who is in no acute distress. Communicates well with provider and answers questions appropriately. SKIN - Without rashes or lesions. NOSE - Midline and without cyanosis. MOUTH/OROPHARYNX - Without perioral cyanosis. NECK - Neck with FROM. LUNGS - Chest wall evaluation demonstrates normal chest wall A:P diameter. Auscultation reveals normal breath sounds with end expiratory wheezing noted throughout basilar lung grove. CARDIAC - RRR with S1/S2. No murmur, rubs, or gallops appreciated. EXTREMITIES - Nail clubbing not present. No peripheral cyanosis. No pretibial edema present. +3/5 radial palpated throughout. PSYCH - A&Ox3 and cooperates fully with examiner. Pt is very pleasant and interacts well with examiner. Results & Data Results & Data Vital Signs (Past 12 Hours) Vital Signs Temp Pulse Pulse Resp BP Pulse Ox O2 Del Method 01/13/23 11:11 36.5 C 67 18 95/57 L 95 Nasal Cannula 01/13/23 07:58 36.6 C 76 20 108/69 97 Nasal Cannula 01/13/23 07:30 62 01/13/23 07:30 Nasal Cannula 01/13/23 07:19 68 20 94 Nasal Cannula 01/13/23 03:25 36.4 C L 65 16 97/60 L 95 Nasal Cannula 01/13/23 00:43 74 18 93 Nasal Cannula O2 Flow Rate 01/13/23 11:11 2 01/13/23 07:58 2 01/13/23 07:30 01/13/23 07:30 2 01/13/23 07:19 2 01/13/23 03:25 2 01/13/23 00:43 2 PG Care Time/CCT Total # of Minutes Spent Total Time Spent with Patient: Total time spent is greater than 50% in coordination of care (as documented) at patient's floor/unit and/or counseling patient: Coding Level of Care Code 69886 IN/OBS CONSULT LVL 4,60M Diagnoses Emphysema lung J43.9 Acute respiratory failure with hypoxia J96.01 Takotsubo cardiomyopathy I51.81 Tobacco use Z72.0 Snoring R06.83 Hypercapnia R06.89
[2023-01-13] MEDS ORDERED: predniSONE 20 MG TAB PO STA (14:42)
--- NOTE | 2023-01-13 14:51 | Hospitalist Progress Note ---
Date of Service January 13, 2023 Assessment & Plan (1) Multifocal pneumonia: Plan 57-year-old female with PMH of GERD, anxiety, tobacco use (smoking since last 30 years), chronic pain, history of splenectomy presented to ER 01/08 with complaint of worsening exertional shortness of breath x 3 weeks. Green productive cough x1 week. Severely increased shortness of breath on the day of arrival. She is being managed for the following: Multifocal pneumonia Sepsis POA: Likely secondary to above Acute respiratory failure with hypoxia: Likely secondary to above History of asplenia: In ER patient afebrile, tachycardic, BP stable, 83% on room air up to 94% on 4 L nasal cannula. WBC 20.25K. D-dimer nl. Lactate WNL. Increased work of breathing noted. DDx bronchitis, pneumonia. Suspect underlying undiagnosed COPD and likely COPD exacerbation Resp Biofire and covid neg. Longstanding smoking hx, pt counselled, didn't like counselling. CT chest w/ multifocal Pna and emphysema. C/w NC O2, wean down as tolerated. Continue with nebs and steroid. Steroid increased to 40 mg daily from today. Continue with cefepime 01/08 --> rocephin 01/12 and doxycycline 01/08 Sp Cx w/ S Pneumoniae, f/u Admitting bl cx - NG5D. Patient afebrile, feels clinically better. Will need CXR and PFT in 6 weeks time upon discharge, possible establish with pulmonology. Sleep studay as OP, possible BPAP need. ABG w/ hypercapneia compensated w/ increased serum CO2. Pulm francealebelle, recommends PFT, sleep study as OP then possibly BPAP, Breo change to LABA/LAMA at SD, slightly increase current prednisone dose. Elevated troponin ACS versus demand ischemia Possible stress-induced cardiomyopathy Patient presents with acute illness [see above], troponin elevated at 500, peaked at 1613, down trended to 888. LDL 70. Patient with no chest pain or tightness or pressure. Serial EKG reviewed, 01/08 echo with EF of 25 to 30%, severe diffuse left ve ntricular hypokinesis affecting the mid and apical segments with relative sparing of the basal segments. Grade 2 diastolic function noted. Repeat echo on 01/09 with EF of 25 to 30%, subtle improvement in the overall left ventricular systolic function noted. Repeat Echo 01/12 w/ resolution of above abn in echo. Repeat ECHO 01/13 w/ primarily lateral and septal wall motion abnormalities with mildly reduced LV systolic function. Patient clinically not volume overloaded, will continue to monitor. Not in heart failure. Cardiology on board, s/p heparin drip x 48 hrs, Repeat ECHO w/ primarily lateral and septal wall motion abnormalities with mildly reduced LV systolic function. Hence plan for Cath today. Continue with telemetry monitoring. Other chronic medical conditions: Anxiety - Continue escitalopram, clonazepam Chronic pain - Continue buprenorphine, gabapentin Tobacco use - 1 pack/day x > 30 years, Smoking cessation advised. Currently using nicotine patch. DVT Prophylaxis: lovenox sc Full Code Follows with Jillian Persaud PA-C in [place] for routine care Dispo: james wiggins Updated pt's dtr [place] at bedside. Time spent evaluating patient, direct bedside care, chart review, placing orders, interpretation of diagnostic studies, discussion with consultants, patient, and family members, as well as other required patient management activities is 60 minutes. Please note the above document was generated using voice recognition software. It may contain grammatical, syntax or spelling errors. Any formal questions or concerns about the content, text or information contained within the body of this dictation should be directly addressed to the undersigned for clarification. Admission and Anticipated Discharge Date Admission Date: January 08, 2023 Subjective Patient seen and examined at bedside as a follow-up of acute respiratory failure with hypoxia, elevated troponin [likely demand ischemia versus ACS], multifocal pneumonia. Patient was lying in bed, on 2 L oxygen via nasal cannula, states she is anxious - ordered a dose of xanax, pt's dtr [place] at bedside. Updated regarding lung status and possible chr co2 retention which might mean OP sleep study, PFT and possibly BPAP. Patient reports improvement in her cough, improvement in the color of the sputum to parachute supervisor yellow, patient has been afebrile. Reports eating okay. But NPO after breakfast for heart cath later in the day. Physical Exam Physical Exam: GENERAL: Alert and oriented x3. NAD, on 2L NC O2. HEENT: No pallor, no icterus. Pupils equal, round and reactive to light. Oral mucosa moist. NECK: No JVD, no neck masses. HEART: S1 and S2 heard. Regular rate and rhythm. No murmur, no gallop. RESPIRATORY SYSTEM: Normal AP diameter. No accessory muscle use. b/l rhonci, b/l crackles. persistent. ABDOMEN: Soft, bowel sounds present, nontender, no distention. CENTRAL NERVOUS SYSTEM: No facial droop. Speech is clear. Obeys simple commands. Moves extremities. EXTREMITIES: No edema, no erythema seen. Results & Data Results & Data Vital Signs (Past 12 Hours) Vital Signs Temp Pulse Pulse Resp BP Pulse Ox O2 Del Method 01/13/23 14:19 63 20 91 Nasal Cannula 01/13/23 11:11 36.5 C 67 18 95/57 L 95 Nasal Cannula 01/13/23 07:58 36.6 C 76 20 108/69 97 Nasal Cannula 01/13/23 07:30 62 01/13/23 07:30 Nasal Cannula 01/13/23 07:19 68 20 94 Nasal Cannula 01/13/23 03:25 36.4 C L 65 16 97/60 L 95 Nasal Cannula O2 Flow Rate 01/13/23 14:19 2 01/13/23 11:11 2 01/13/23 07:58 2 01/13/23 07:30 01/13/23 07:30 2 01/13/23 07:19 2 01/13/23 03:25 2
--- NOTE | 2023-01-13 15:15 | Pre Anesthesia Assessment ---
Date of Service January 13, 2023 Pre Sedation Assessment Vital Signs Temp Pulse Pulse Resp BP Pulse Ox Pulse Ox 01/13/23 16:43 36.6 C 73 18 98/62 L 91 01/13/23 16:29 65 01/13/23 16:25 64 18 96/62 L 95 01/13/23 16:10 64 18 90/69 L 90 01/13/23 14:51 88 18 101/59 L 93 01/13/23 14:19 63 20 91 01/13/23 11:11 36.5 C 67 18 95/57 L 95 01/13/23 07:58 36.6 C 76 20 108/69 97 01/13/23 07:30 62 01/13/23 07:30 01/13/23 07:19 68 20 94 01/13/23 03:25 36.4 C L 65 16 97/60 L 95 01/13/23 00:43 74 18 93 01/13/23 00:05 99 H 01/12/23 23:34 36.7 C 73 16 93/62 L 99 01/12/23 23:32 01/12/23 19:00 91 01/12/23 20:01 86 20 93 01/12/23 19:30 36.8 C 71 16 122/75 91 O2 Del Method O2 Del Method O2 Flow Rate O2 Flow Rate 01/13/23 16:43 Nasal Cannula 2 01/13/23 16:29 01/13/23 16:25 Nasal Cannula 3 01/13/23 16:10 Nasal Cannula 3 01/13/23 14:51 Nasal Cannula 2 01/13/23 14:19 Nasal Cannula 2 01/13/23 11:11 Nasal Cannula 2 01/13/23 07:58 Nasal Cannula 2 01/13/23 07:30 01/13/23 07:30 Nasal Cannula 2 01/13/23 07:19 Nasal Cannula 2 01/13/23 03:25 Nasal Cannula 2 01/13/23 00:43 Nasal Cannula 2 01/13/23 00:05 01/12/23 23:34 Nasal Cannula 3 01/12/23 23:32 Nasal Cannula 2 01/12/23 19:00 Nasal Cannula 2 01/12/23 20:01 Nasal Cannula 2 01/12/23 19:30 Nasal Cannula 2 Cardiovascular + regular rate and + regular rhythm + S1 normal and + S2 normal; no murmur + femoral pulses present and + radial pulses present; no JVD and no carotid bruit no edema Respiratory + respiratory effort normal; no respiratory distress, no labored breathing and no retractions no crackles, no rales, no rhonchi and no wheezes Pre-Sedation Airway Assessment Smoking Status: Current every day smoker Hx Sleep Apnea: No Short, Thick Neck: No Thyromental Distance: > or= 3.5 Finger Breadths Oral Cavity: + Dentures and + Dental Abnormalities Mallampati Class: III ASA: ASA3 NPO Status Date of Last Intake of Fluids: 01/13/23 Time of Last Intake of Fluids: 10:00 Date of Last Intake of Solid Food: 01/13/23 Time of Last Intake of Solid Foods: 08:00 Procedure Planning Contraindications for Sedation: none Current Medications Reviewed: Yes Notes The planned sedation has been discussed with the patient. Informed Consent was obtained. I have identified the patient, determined the appropriateness of sedation and have assessed the patient immediately prior to the procedure. All medicine(s) and interventions are by my order.
[2023-01-13] MEDS ORDERED: fentaNYL citrate PF 100 MCG/2 ML VIAL ONE (15:21)
[2023-01-13] MEDS ORDERED: HEPARIN (PORCINE) 1000 UNIT/ML 10 ML (CATH LAB USE ONLY) ONE (15:21)
[2023-01-13] MEDS ORDERED: MIDAZOLAM HCL 1 MG/ML 2ML VIAL ONE (15:21)
[2023-01-13] MEDS ORDERED: niCARdipine HCL INJ 2.5 MG/ML 10 ML AMP ONE (15:21)
[2023-01-13] MEDS ORDERED: NITROGLYCERIN/D5W 100MCG/ML 20ML SYR ONE (15:23)
--- NOTE | 2023-01-13 16:10 | Post Anesthesia Assessment ---
Date of Service January 13, 2023 Post Sedation Assessment Vital Signs Temp Pulse Pulse Resp BP Pulse Ox Pulse Ox 01/13/23 16:43 36.6 C 73 18 98/62 L 91 01/13/23 16:29 65 01/13/23 16:25 64 18 96/62 L 95 01/13/23 16:10 64 18 90/69 L 90 01/13/23 14:51 88 18 101/59 L 93 01/13/23 14:19 63 20 91 01/13/23 11:11 36.5 C 67 18 95/57 L 95 01/13/23 07:58 36.6 C 76 20 108/69 97 01/13/23 07:30 62 01/13/23 07:30 01/13/23 07:19 68 20 94 01/13/23 03:25 36.4 C L 65 16 97/60 L 95 01/13/23 00:43 74 18 93 01/13/23 00:05 99 H 01/12/23 23:34 36.7 C 73 16 93/62 L 99 01/12/23 23:32 01/12/23 19:00 91 01/12/23 20:01 86 20 93 01/12/23 19:30 36.8 C 71 16 122/75 91 O2 Del Method O2 Del Method O2 Flow Rate O2 Flow Rate 01/13/23 16:43 Nasal Cannula 2 01/13/23 16:29 01/13/23 16:25 Nasal Cannula 3 01/13/23 16:10 Nasal Cannula 3 01/13/23 14:51 Nasal Cannula 2 01/13/23 14:19 Nasal Cannula 2 01/13/23 11:11 Nasal Cannula 2 01/13/23 07:58 Nasal Cannula 2 01/13/23 07:30 01/13/23 07:30 Nasal Cannula 2 01/13/23 07:19 Nasal Cannula 2 01/13/23 03:25 Nasal Cannula 2 01/13/23 00:43 Nasal Cannula 2 01/13/23 00:05 01/12/23 23:34 Nasal Cannula 3 01/12/23 23:32 Nasal Cannula 2 01/12/23 19:00 Nasal Cannula 2 01/12/23 20:01 Nasal Cannula 2 01/12/23 19:30 Nasal Cannula 2 Recovery Score Activity: Moves 4 extremities Respiration: Deep Breath/Cough Circulation: +/-20% PreAnes Value Consciousness: Fully Awake Oxygen Saturation: > 92% On Room Air Discharge Sedation Level of Care: Phase I Post Sedation Plan On clinical assessment, the patient appears to have tolerated the sedation without complications. Patient is recovering as anticipated. Patient will continue to be monitored by nursing and may be discharged when sedation discharge criteria are met per below protocol. Upon Completions of procedure up to 15 minutes continue every 5 minute vital signs and the P.A.R. score; then discharge to a Phase I or Fast Track to Phase II per the following guidelines: * Discharge Patient to appropriate Phase II area if PAR is 8 or greater or return to pre- procedure baseline. The post - procedure orders will be as directed. * If PAR score is less than 8 or not return to pre-procedure baseline then patient will follow Phase I monitoring till PAR is reached for Phase II. The Phase I may be done in procedure room or may call to secure a Phase I area. * If naloxone or flumazenil are used for reversal, hold in Phase I for continued monitoring from when last reversal dose was given for a minimum of 60 minutes or longer pending the nurse and/or physician discretion of patient condition before discharge to Phase II. Please call the Sedation Physician to re-evaluate and complete post-note for discharge to Phase II area. Do NOT discharge from procedure sedation or Phase 1 until post- sedation evaluation note is complete by procedure /sedation MD Sedation Discharge Instructions to be given to the patient at discharge to home.
--- NOTE | 2023-01-13 16:13 | Cardiac Catheterization ---
Cardiac Cath Procedure Full Procedure Date January 13, 2023 Pre-Procedure Diagnosis Pre-Procedure Diagnosis: Non STEMI and Cardiomyopathy AUC Score AUC Score: 7 Post-Procedure Diagnosis Post-Procedure Diagnosis: Normal Coronary Arteries and Elevated Intracardiac Pressures Procedure(s) Performed Procedure(s) Performed: Coronary Angiography and Left Heart Cath Supervisor Agency Appointments Herbie Walker DO [employer] Preparation Worker(s) Demetrius RTR Estimated Blood Loss Estimated Blood Loss: 3cc Medication(s) Medication(s): Fentanyl, Heparin, Lidocaine 1%, Nicardipine, Nitroglycerin and Versed Summary of Findings Normal coronary arteries Hemodynamics Rest Ao:: 96/65/91 Final Ao: 101/62/79 LV: 104/10/18 Recommendations Recommendations: Management Recommendatons Radiation Exposure (mGy) 299 Contrast (mls) 50 Drains Drains: N/A Anesthesia Moderate sedation. Start 1541. End 1600. Sedation monitor: Karen CABRAL Procedural Complication(s) None I attest to the content of the Intraoperative Record and any orders documented therein. Any exceptions are noted below. 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 Suspected stress-induced cardiomyopathy versus multivessel ischemic heart disease. CAD Presenation: Non STEMI STEMI OR Non-STEMI Symptom Onset Date: 01/08/23 Thrombolytics: No Coronary Anatomy Dominant: Right Left Main (% Stenosis): Normal LAD (% Stenosis): Normal D1 (% Stenosis): Normal Circumflex (% Stenosis): Normal OM1 (% Stenosis): Normal OM2 (% Stenosis): Normal L PL1 (% Stenosis): Normal L PL2 (% Stenosis): Normal RCA (% Stenosis): Normal R PDA (% Stenosis): Normal Ramus (% Stenosis): Normal Diagnostic Physicians Name: Herbie Walker DO Closure Device Percutaneous Entry Location: Radial Closure Device: Radial Band Recommendations: Management Recommendatons Intraprocedure Events Significant Disection: No Perforation: No
[2023-01-13] MEDS: UMECLIDINIUM/VILANTEROL 62.5/25MCG 7 PUFFS/INHALER INH SCH (17:08)
--- NOTE | 2023-01-13 17:41 | Discharge Summary ---
Date of Service January 14, 2023 Admission HPI Per Admitting Provider Patient is a 57-year-old female with PMH GERD, anxiety, tobacco use, chronic pain, history of splenectomy presented to ER with complaint of shortness of breath. History obtained from patient and patient's daughter. Patient reports exertional SOB for greater than 1 year. Followed with PCP who initially placed patient on albuterol inhaler as needed. Patient states was using frequently and recently was started on Breo inhaler daily. Has not had any formal PFTs or further work-up for per patient. Patient states the past 3 weeks she has had increased shortness of breath with exertion. She states she lives in a 1 story trailer and she has been short of breath with minimal ambulation throughout her house. States for the past week has had cough productive of green-colored sputum. Reports has been coughing a lot and abdomen and back are aching after coughing. States past couple days increased fatigue and dizziness with standing. Patient reports severely increased shortness of breath this morning. Patient states was also diaphoretic this morning. Has not been taking her temperature. She called EMS. As reported EMS noted patient to be hypoxic gave patient DuoNeb. Patient states feels less short of breath after DuoNeb and while on oxygen. Denies chest pain. Denies ill contacts, recent travel Denies N/V/D, LOPEZ, syncope, vision changes, neck pain, CP, chest tightness, orthopnea, palpitations, hemoptysis, sore throat, choking, otalgia, rhinorrhea, paresthesias, extremity weakness, extremity edema, rashes, urinary symptoms. Admission Exam Per Admitting Provider General: no acute distress on current 3 liters oxygen and at rest, WDWN female appears older than stated age Head: normocephalic, atraumatic Eyes: conjunctiva non-injected, anicteric ENT: normal inspection external ears, nose, mucous membranes moist Neck: supple, trachea midline Lungs: no respiratory distress at rest and on 3L oxygen. Sats 93-94%, +rhonchi throughout that decreases after coughing, + scattered wheezing throughout CV: regular rhythm, tachycardia,rate 100, no murmur noted, no pretibial edema Abd: normal BS, soft, non-tender Ext: no cyanosis, no erythema, no calf tenderness Neuro: A&O x 3, no focal deficits noted, mildly anxious affect Skin: warm, dry Principal Diagnosis Compensated chronic hypercarbic respiratory failure Likely COPD exacerbation Pneumonia Possible stress-induced cardiomyopathy Elevated troponin Sepsis POA Discharge Exam GENERAL: Alert and oriented x3. NAD, on 2L NC O2. HEENT: No pallor, no icterus. Pupils equal, round and reactive to light. Oral mucosa moist. NECK: No JVD, no neck masses. HEART: S1 and S2 heard. Regular rate and rhythm. No murmur, no gallop. RESPIRATORY SYSTEM: Normal AP diameter. No accessory muscle use. b/l rhonci, b/l crackles. improved. ABDOMEN: Soft, bowel sounds present, nontender, no distention. CENTRAL NERVOUS SYSTEM: No facial droop. Speech is clear. Obeys simple commands. Moves extremities. EXTREMITIES: No edema, no erythema seen. Discharge Data Allergies Allergy/AdvReac Type Severity Reaction Status Date / Time No Known Allergies Allergy Mild Unverified 12/15/14 06:06 Consultations 01/08/23 11:28 ED Decision to Admit Stat 01/08/23 15:29 Consult Cardiology Routine 01/13/23 09:33 Consult Cardiac Catheterization Routine 01/13/23 11:48 Consult Pulmonology Routine Procedures Performed Operation Date: 01/13/23 14:00 Actual Procedures p Cineradiography w/Routine Exam - Herbie Walker DO p Cath, Left with Cors and Vent - Herbie Walker DO Ordered Studies 01/08/23 13:44 CT chest diagnostic wo con Urgent 01/13/23 11:26 CL Cath Imgs for PACS use only Routine Hospital Course (1) Multifocal pneumonia: Plan 57-year-old female with PMH of GERD, anxiety, tobacco use (smoking since last 30 years), chronic pain, history of splenectomy presented to ER 01/08 with complaint of worsening exertional shortness of breath x 3 weeks. Green productive cough x1 week. Severely increased shortness of breath on the day of arrival. She was managed for the following: Multifocal pneumonia Sepsis POA: Likely secondary to above Acute respiratory failure with hypoxia: Likely secondary to above History of asplenia: In ER patient afebrile, tachycardic, BP stable, 83% on room air up to 94% on 4 L nasal cannula. WBC 20.25K. D-dimer nl. Lactate WNL. Increased work of breathing noted. DDx bronchitis, pneumonia. Suspect underlying undiagnosed COPD and likely COPD exacerbation Resp Biofire and covid neg. Longstanding smoking hx, pt counselled, didn't like counselling. CT chest w/ multifocal Pna and emphysema. C/w NC O2, wean down as tolerated. Will be discharged on p.o. steroid, tapering dose. Will be discharged on doxycycline and cefuroxime to complete the course. Will need CXR and PFT in 6 weeks time upon discharge, possible establish with pulmonology. Sleep study as OP, possible BPAP need. ABG w/ hypercapneia compensated w/ increased serum CO2. Pulalicia fang, recommends PFT, sleep study as OP then possibly BPAP, Breo change to [place] at [place], yearly low dose CT Chest lung cancer screening. Patient feels better, hemodynamically stable, would like to go home. Heart WNL. Elevated troponin ACS versus demand ischemia Possible stress-induced cardiomyopathy Patient presents with acute illness [see above], troponin elevated at 500, peaked at 1613, down trended to 888. LDL 70. Patient with no chest pain or tightness or pressure. Serial EKG reviewed, 01/08 echo with EF of 25 to 30%, severe diffuse left ventricular hypokinesis affecting the mid and apical segments with relative sparing of the basal segments. Grade 2 diastolic function noted. Repeat echo on 01/09 with EF of 25 to 30%, subtle improvement in the overall left ventricular systolic function noted. Repeat Echo 01/12 w/ resolution of above abn in echo. Repeat ECHO 01/13 w/ primarily lateral and septal wall motion abnormalities with mildly reduced LV systolic function. Patient clinically not volume overloaded, will continue to monitor. Not in heart failure. Cardiology on board, s/p heparin drip x 48 hrs, Repeat ECHO w/ primarily lateral and septal wall motion abnormalities with mildly reduced LV systolic function. Heart cath WNL. Appreciate cardiology evaluation. Other chronic medical conditions: Anxiety - Continue escitalopram, clonazepam Chronic pain - Continue buprenorphine, gabapentin Tobacco use - 1 pack/day x > 30 years, Smoking cessation advised. Currently using nicotine patch. DVT Prophylaxis: lovenox sc Full Code Follows with Jillian Persaud PA-C in [place] for routine care Patient being discharged to home with following instruction at the point of discharge: Follow-up with your primary care physician within a week time and likely you will need labs CBC/CMP/magnesium/phosphorus. Strongly advise against any form of tobacco use in any amount. You will need repeat CT scan of the chest in 8 weeks, sleep study as an outpatient and likely evaluation for BiPAP need, and pulmonary function test in about 6 weeks. Coordinate with the PCP office to set up these tests. You will likely benefit from establishing with pulmonology as an outpatient, coordinate with the PCP office for referral. You will need yearly low-dose CT lung cancer screening images moving forward. You will be discharged on antibiotics/inhaler/steroid for your lung conditions. Take them as prescribed. Cardiology evaluated you, you underwent cardiac cath, which came back normal. Take medications as prescribed. Please make sure that you are able to get your medications today by calling your pharmacy before you leave the hospital so that your treatment continuity is not broken. Home Health Attestation I certify that this patient is under my care and that I, or a physicians higher level teaching assistant working with me, had a face to-face encounter that meets the home health [id number] encounter requirements with this patient. The encounter with the patient was in whole, or in part, for the following medical condition, which is the primary reason for home health care (list medical condition): I certify that, based on my findings, the following services are medically necessary home health services: My clinical findings support the need for the above services because: Further, I certify that my clinical findings support that this patient is homebound (i.e. absences from home require considerable and taxing effort and are for medical reasons or temple services or infrequently or of short duration when for other reasons) because: Certification for Home Health Services: Based on the above findings, I certify that this patient is confined to the home and needs intermittent senior care care, physical therapy and/or speech therapy or continues to need occupational therapy. The patient is under my care, and I have initiated the establishment of the plan of care. This patient will be followed by a physician who will periodically review the plan of care. Total Time Total Time Spent Total Time Spent (In Minutes): 45 Discharge Plan Discharge Items Patient Disposition: Home - Self-Care Reason For Visit: HYPOXIA Discharge Diagnosis: Compensated chronic hypercarbic respiratory failure Likely COPD exacerbation Pneumonia Possible stress-induced cardiomyopathy Elevated troponin Sepsis POA Activity: Resume your previous activity Non-emergency contact: Primary Care Provider Call non-emergency contact if: you have any medication questions, your symptoms worsen and your temperature is above 101 Follow-up/Referrals: Prabhu Stephens MD [Physician] - Herbie Walker DO [Feeder Tender] - Jillian Persaud PA-C [Primary Care Provider] - 01/20/23 1:20 pm Diet: Heart Healthy and Low Sodium (2gm) Addtl Attending Provider Instructions: Follow-up with your primary care physician within a week time and likely you will need labs CBC/CMP/magnesium/phosphorus. Strongly advise against any form of tobacco use in any amount. You will need repeat CT scan of the chest in 8 weeks, sleep study as an outpatient and likely evaluation for BiPAP need, and pulmonary function test in about 6 weeks. Coordinate with the PCP office to set up these tests. You will likely benefit from establishing with pulmonology as an outpatient, coordinate with the PCP office for referral. You will need yearly low-dose CT lung cancer screening images moving forward. You will be discharged on antibiotics/inhaler/steroid for your lung conditions. Take them as prescribed. Cardiology evaluated you, you underwent cardiac cath, which came back normal. Take medications as prescribed. Please make sure that you are able to get your medications today by calling your pharmacy before you leave the hospital so that your treatment continuity is not broken. Pending Studies at Discharge: No Stand-Alone Forms: My [facility], Smoking Cessation Medications and DC Order Prescriptions: New cefuroxime axetil 500 mg Tablet 500 mg PO BID 4 Days Qty: 8 0RF doxycycline hyclate 100 mg Capsule 100 mg PO BID 4 Days Qty: 8 0RF nicotine [Nicoderm CQ] 21 mg/24 hr Patch 24 Hour 21 mg transdermal QAM Qty: 28 0RF Anoro Ellipta 62.5-25 mcg/actuation Blister With Device 1 ea inhalation DAILY Qty: 60 0RF atorvastatin 40 mg Tablet 40 mg PO QAM Qty: 30 0RF metoprolol succinate 25 mg Tablet Extended Release 24 Hr 12.5 mg PO QAM Qty: 15 0RF aspirin 81 mg Tablet,Delayed Release (Dr/Ec) 81 mg PO DAILY Qty: 30 0RF prednisone 20 mg Tablet 40 mg PO UD 6 Days Qty: 9 0RF Rx Instructions: 2 tabs daily for 3 days, then one tab daily for 3 days. Continued gabapentin 600 mg tablet 600 mg PO QID clonazepam 1 mg tablet 1 mg PO BID mirtazapine 30 mg tablet 30 mg PO HS albuterol sulfate 90 mcg/actuation HFA aerosol inhaler 2 inh INHALATION Q6H PRN (Reason: Shortness Of Breath Or Wheezing) escitalopram oxalate 20 mg tablet 20 mg PO DAILY buprenorphine HCl 8 mg tablet, sublingual 8 mg SUBLINGUAL BID Discontinued fluticasone furoate-vilanterol [Breo Ellipta] 100-25 mcg/dose blister with device 1 inh INHALATION DAILY Discharge Orders: Discharge Order (Routine); Ordered 01/13/23 Ordered By: Brooke Padron Admission Data Admit Date/Time: 01/08/23 12:27 Attending Provider: Brooke Padron Admit Provider: Cathy Beckwith Primary Care Provider: Jillian Persaud Other Providers: Cathy Beckwith ; Goran Catalan ; Herbie Walker ; Prabhu Stephens
[2023-01-13] MEDS: MIRTAZAPINE TAB 15 MG TAB PO SCH (20:26)
[2023-01-13] MEDS: cefUROXime axetil 500 MG TAB PO SCH (20:26)
[2023-01-14] MEDS: LEVALBUTEROL 1.25 MG/3 ML NEB NEB SCH ×2 (02:57→07:10)
[2023-01-14] MEDS: IPRATROPIUM BROMIDE NEB SOLN 0.02% 2.5 ML VIAL INH SCH ×2 (02:57→07:09)
[2023-01-14 06:50] LABS: Hematocrit (blood only) 40.7 % (37.0-47.0); Hemoglobin 13.6 g/dl (12.0-16.0); Mean Corpuscular Hemoglobin 31.7 pg (25.0-34.0); Mean Corpuscular Hgb Conc 33.4 g/dL (32.0-36.0); Mean Corpuscular Volume 94.9 fL (80.0-100.0); Mean Platelet Volume 9.3 fL (9.4-12.4); Platelet Count 471 K/uL (130-400); RDW Coefficient of Variation 14.5 % (11.5-14.5); RDW Standard Deviation 50.6 fL (36.4-46.3); Red Blood Count 4.29 M/uL (4.20-5.40); White Blood Count 16.46 K/ul (4.8-10.8)
[2023-01-14 07:12] LABS: BUN Creatinine Ratio 44.7 (10-20); Calcium 9.5 mg/dl (8.6-10.3); Creatinine Clr Calc Pharmacy 131.5 ml/min; Est GFR (African American) 128.9 ml/min; Est GFR (Non-African American) 111.2 ml/min; Phosphorus 3.8 mg/dl (2.5-4.9)
[2023-01-14] MEDS: METOPROLOL SUCC 25MG EXT REL TAB PO SCH (08:13)
[2023-01-14] MEDS: buprenorphine HCL 8 MG SUBL SL SCH (08:13)
[2023-01-14] MEDS: clonazePAM 1 MG TAB PO SCH (08:13)
[2023-01-14] MEDS: GABAPENTIN 600 MG TAB PO SCH (08:14)
[2023-01-14] MEDS: DOXYCYCLINE HYCLATE 100 MG CAP PO SCH (08:14)
[2023-01-14] MEDS: ESCITALOPRAM OXALATE 20 MG TAB PO SCH (08:14)
[2023-01-14] MEDS: ATORVASTATIN 40 MG TAB PO SCH (08:14)
[2023-01-14] MEDS: cefUROXime axetil 500 MG TAB PO SCH (08:14)
[2023-01-14] MEDS: ASPIRIN 81 MG ECTAB PO SCH (08:15)
[2023-01-14] MEDS: NICOTINE 21 MG/24 HR TDSY TD SCH (08:15)
[2023-01-14] MEDS: UMECLIDINIUM/VILANTEROL 62.5/25MCG 7 PUFFS/INHALER INH SCH (08:15)
[2023-01-14] MEDS: ENOXAPARIN INJ 40 MG/0.4 ML SYR SQ SCH (08:16)
--- NOTE | 2023-01-14 08:30 | Pulmonology Progress Note ---
Date of Service January 14, 2023 Assessment & Plan (1) Emphysema lung: (2) Acute respiratory failure with hypoxia: (3) Takotsubo cardiomyopathy: (4) Tobacco use: (5) Snoring: (6) Hypercapnia: Plan IMPRESSION: 57-year-old female presented with acute onset of shortness of breath found to have Takotsubo cardiomyopathy with persistent hypoxia and findings of hypercapnia. Suspect her hypercapnia is chronic related to COPD as well as use of respiratory suppressant medications. RECOMMENDATIONS: 1. Emphysema noted on CT -possible exacerbation. Recommend 5 days of predniso ne and doxycycline. Outpatient PFTs. Continue Anoro. 2. Acute/chronic respiratory failure with hypoxia and hypercapnia-suspect multifactorial. Will titrate oxygen to keep saturations around 88 to 90% given her concomitant hypercarbia. Outpatient PFTs recommended. Would consider outpatient sleep study to evaluate for central sleep apnea given her use of respiratory suppressant medications. 3. Tobacco abuse - Patient with [id number] history of smoking. Educated on the importance of smoking cessation moving forward. Patient warrants yearly low-dose CT lung cancer screening images moving forward. 4. Community-acquired pneumonia: CT scan demonstrates multifocal airspace opacity. Recommend completing 5-day course of Ceftin and doxycycline. Consideration for outpatient follow-up CT scan in 8 to 12 weeks would be reasonable to ensure the airspace opacities have resolved. Patient appears stable to dismissed from the hospital from a respiratory standpoint. Pulmonary will sign off. Would be happy to see her in the outpatient pulmonary clinic in follow-up. Admission and Anticipated Discharge Date Admission Date: January 08, 2023 Subjective Patient seen and examined. EMR reviewed. The patient is quite anxious to be dismissed from the hospital. She is doing well from a respiratory standpoint. She denies coughing wheezing or sputum production. No chest pain or palpitations. She completed cardiac catheterization yesterday which was unrevealing. Review of Systems Review of Systems: All systems reviewed & are unremarkable except as noted in Subjective Physical Exam Constitutional: WD/WN, vitals as above Neck: trachea midline, no thyromegaly Respiratory: normal respiratory effort, lungs clear to auscultation Cardiovascular: RRR, no murmur, no edema Gastrointestinal (Abdomen): normal bowel sounds, soft, nontender, no hepatosplenomegaly Musculoskeletal: Extremities: extremities normal to inspection Skin: no rashes, warm and dry Neurologic: Nonfocal exam Lymphatic: no cervical lymphadenopathy Results & Data Results & Data Vital Signs (Past 12 Hours) Vital Signs Temp Pulse Resp BP Pulse Ox O2 Del Method O2 Flow Rate 01/14/23 08:00 36.8 C 69 18 94/52 L 95 Nasal Cannula 2 01/14/23 08:02 105/63 01/14/23 07:10 52 L 18 96 Nasal Cannula 2 01/14/23 03:07 36.6 C 57 L 20 88/54 L 97 Nasal Cannula 2 01/14/23 02:57 90 18 89 L Nasal Cannula 2 01/13/23 23:11 36.7 C 65 20 95/60 L 94 Room Air 01/13/23 22:23 Nasal Cannula 2 Laboratory Results 01/14/23 06:09 01/14/23 06:09 Diagnostic Findings No new imaging Cardiac catheterization no obstructive coronary disease PG Care Time/CCT Total # of Minutes Spent Total Time Spent with Patient: Total time spent is greater than 50% in coordination of care (as documented) at patient's floor/unit and/or counseling patient: Coding Level of Care Code 97356 SUB INP/OBS CARE 2/35MIN Diagnoses Emphysema lung J43.9 Acute respiratory failure with hypoxia J96.01 Takotsubo cardiomyopathy I51.81 Tobacco use Z72.0 Snoring R06.83 Hypercapnia R06.89
[2023-01-14] MEDS ORDERED: predniSONE 20 MG TAB PO SCH (09:00)
--- NOTE | 2023-01-14 15:32 | Electrocardiogram Report ---
Test Reason : Blood Pressure : / mmHG Vent. Rate : 058 BPM Atrial Rate : 058 BPM P-R Int : 136 ms QRS Dur : 092 ms QT Int : 428 ms P-R-T Axes : 071 087 084 degrees QTc Int : 420 ms Sinus bradycardia T wave abnormality, consider anterior ischemia Abnormal ECG When compared with ECG of 11-JAN-2023 05:42, Incomplete right bundle branch block is no longer Present T wave inversion no longer evident in Lateral leads QT has shortened Confirmed by Zaire Russo ([id number]) on 01/14/2023 3:31:57 PM Referred By: REFERRED SELF Confirmed By:Zaire Russo
== END 2023-01-14 11:27 | disposition home or self-care (01) | DRG 871 ==
LOC: ED 09:35 → SUATTDRO 12:27 → EDINP 12:27 → 2S 01-09 15:26